=== PATIENT | male | born 1940 | race Caucasian/White ===

== ENCOUNTER 2018-05-19 17:23 | Emergency (ER) | payer MEDICARE, MEDICAID ==
[~2018-05-19] VITALS: Ht 175.3 cm; Wt 89.1 kg
[~2018-05-19 17:23] MED LIST: ASPI-611 PO; COL100C PO; COR3.125T PO; CYCL-394 PO; FERR325T28 PO; INSU100V36 SQ; LANTUS SQ; METF850T2 PO; MSC15T PO; NORCO10T PO; PANT40TA39 PO; PRAV10TA38 PO
[2018-05-19 17:24] VITALS: BP 142/69
== END 2018-05-19 18:10 | disposition home or self-care (01) ==
LOC: ER 17:24
DX: R05 Cough (principal); R11.2 Nausea with vomiting, unspecified; I10 Essential (primary) hypertension; I25.10 Atherosclerotic heart disease of native coronary artery without angina pectoris; E78.00 Pure hypercholesterolemia, unspecified; I25.2 Old myocardial infarction; K21.9 Gastro-esophageal reflux disease without esophagitis; E11.9 Type 2 diabetes mellitus without complications; Z95.1 Presence of aortocoronary bypass graft; Z79.82 Long term (current) use of aspirin; Z79.4 Long term (current) use of insulin; Z79.84 Long term (current) use of oral hypoglycemic drugs; Z79.899 Other long term (current) drug therapy
CPT/HCPCS: 99281

== ENCOUNTER 2018-07-26 14:13 | Emergency (ER) | payer MEDICARE, OTHER ==
[~2018-07-26] VITALS: Ht 177.8 cm; Wt 86.4 kg
[2018-07-26] MEDS ORDERED: dexamethasone sod phosphate 10mg/ml inj IV STA (14:20)
[2018-07-26] MEDS ORDERED: normal saline 1000ML IV soln IVB ONE ×3 (14:20→16:25)
[2018-07-26] MEDS ORDERED: dextrose 50%-water 50ml dispensing syringe IV ONE (14:40)
[2018-07-26 15:23] LABS: BASOPHILS % (AUTO) 0 % (0-1); EOSINOPHILS # (AUTO) 0.2 X10'3 (0-0.9); EOSINOPHILS % (AUTO) 1.7 % (0-6); HEMATOCRIT 38.5 % (42.0-52.0); HEMOGLOBIN 12.7 g/dl (14.0-17.9); LYMPHOCYTES # (AUTO) 1.8 X10'3 (1.1-4.8); LYMPHOCYTES % (AUTO) 13.5 % (21-51); MEAN CORPUSCULAR HEMOGLOBIN 30.4 PG (27.0-31.0); MEAN CORPUSCULAR VOLUME 92.1 FL (78-98); MEAN PLATELET VOLUME 10.8 FL (7.4-10.4); MONOCYTES # (AUTO) 1.1 X10'3 (0-0.9); MONOCYTES % (AUTO) 7.9 % (2-12); NEUTROPHILS # (AUTO) 10.3 X10'3 (1.8-7.7); NEUTROPHILS % (AUTO) 76.9 % (42-75); PLATELET COUNT 266 X10'3 (140-440); RED BLOOD COUNT 4.19 X10'6 (4.70-6.10); WHITE BLOOD COUNT 13.4 X10'3 (4.5-11.0)
[2018-07-26 15:40] LABS: ALANINE AMINOTRANSFERASE 23 U/L (12-78); ALBUMIN/GLOBULIN RATIO 1.1 (1.1-1.5); ALKALINE PHOSPHATASE 112 IU/L (46-116); ANION GAP 9 (8-16); ASPARTATE AMINO TRANSFERASE 25 U/L (10-37); BILIRUBIN,TOTAL 0.4 MG/DL (0.1-1.0); BLOOD UREA NITROGEN 32 MG/DL (7-18); BUN/CREATININE RATIO 24.8 (5.4-32.0); CALCIUM 9.8 MG/DL (8.5-10.1); CHLORIDE 102 MMOL/L (99-107); CREATININE 1.29 MG/DL (0.60-1.10); GLUCOSE 54 MG/DL (70-104); POTASSIUM 3.9 MMOL/L (3.5-5.1); SODIUM 136 MMOL/L (135-145); TOTAL CARBON DIOXIDE 25.2 MMOL/L (24-32); TOTAL PROTEIN 7.8 G/DL (6.4-8.2); eGFR 54 ML/MIN
[2018-07-26 16:05] LABS: TOTAL CELLS COUNTED 100
[2018-07-26 16:06] LABS: PLATELET ESTIMATE NORMAL
[2018-07-26 16:07] LABS: GIANT PLATELET FEW; LARGE PLATELETS MODERATE; TOXIC GRANULATION 2+
[2018-07-26 16:20] VITALS: BP 153/62
[2018-07-26 17:17] LABS: CLARITY,URINE SLIGHTLY CLOUDY (Clear); COLOR,URINE YELLOW (Yellow); GLUCOSE, URINE 500 mg/dl (Neg); KETONES,URINE NEGATIVE (Neg); LEUKOCYTE ESTERASE ,URINE NEGATIVE (Neg); NITRITES, URINE NEGATIVE (Neg); OCCULT BLOOD,URINE NEGATIVE (Neg); PH,URINE 5.5 (4.8-8.0); PROTEIN,URINE 100 mg/dl (Neg); UROBILINOGEN,URINE 0.2 E.U/dL (0.2-1.0)
[2018-07-26 17:18] LABS: UA COLLECTION TYPE STRAIGHT CATH
[2018-07-26 17:24] LABS: BACTERIA,URINE NONE SEEN /HPF (Neg); MUCUS STRANDS FEW /LPF (Neg); RBC,URINE 0-2 /HPF (0-2); SQUAMOUS EPITHELIAL CELL,UR FEW /LPF (FEW); TRANSITIONAL EPI CELLS,URINE FEW /HPF; WBC,URINE 0-4 /HPF (0-4)
[2018-07-26 17:25] LABS: AMORPHOUS URATES 2+; HYALINE CASTS 0-3 /LPF (NEGATIVE)
[2018-07-26] MEDS ORDERED: CefTRIAXone 2gm/D5W 50ml 50 ML IV ONE (17:25)
[2018-07-26] MEDS ORDERED: LEVO500T89 PO (18:51)
== END 2018-07-26 19:11 | disposition home or self-care (01) ==
LOC: ER 14:14
DX: E11.649 Type 2 diabetes mellitus with hypoglycemia without coma (principal); I25.10 Atherosclerotic heart disease of native coronary artery without angina pectoris; E78.00 Pure hypercholesterolemia, unspecified; I10 Essential (primary) hypertension; I25.2 Old myocardial infarction; K21.9 Gastro-esophageal reflux disease without esophagitis; Z95.1 Presence of aortocoronary bypass graft; Z79.82 Long term (current) use of aspirin; Z79.4 Long term (current) use of insulin; Z79.899 Other long term (current) drug therapy
CPT/HCPCS: 36415; 71045; 80053; 81001; 82948; 84145; 85025; 93005; 96361; 96365; 96375; 99285; A4353; J0696; J1100; J7030

== ENCOUNTER 2018-08-02 10:21 | Emergency (ER) | payer MEDICARE, OTHER ==
[~2018-08-02] VITALS: Ht 175.3 cm; Wt 85.5 kg
[~2018-08-02 10:21] MED LIST changes: +LEVO500T89 PO
[2018-08-02 10:58] LABS: BASOPHILS % (AUTO) 0 % (0-1); EOSINOPHILS # (AUTO) 0.1 X10'3 (0-0.9); EOSINOPHILS % (AUTO) 0.6 % (0-6); HEMATOCRIT 39.3 % (42.0-52.0); HEMOGLOBIN 13.2 g/dl (14.0-17.9); LYMPHOCYTES # (AUTO) 0.7 X10'3 (1.1-4.8); LYMPHOCYTES % (AUTO) 4.3 % (21-51); MEAN CORPUSCULAR HEMOGLOBIN 30.4 PG (27.0-31.0); MEAN CORPUSCULAR HGB CONC 33.5 % (33.0-36.5); MEAN CORPUSCULAR VOLUME 90.8 FL (78-98); MEAN PLATELET VOLUME 11.4 FL (7.4-10.4); MONOCYTES # (AUTO) 1.2 X10'3 (0-0.9); MONOCYTES % (AUTO) 7.5 % (2-12); NEUTROPHILS # (AUTO) 14.5 X10'3 (1.8-7.7); NEUTROPHILS % (AUTO) 87.6 % (42-75); PLATELET COUNT 243 X10'3 (140-440); RED BLOOD COUNT 4.33 X10'6 (4.70-6.10); WHITE BLOOD COUNT 16.6 X10'3 (4.5-11.0)
[2018-08-02 11:11] LABS: ALANINE AMINOTRANSFERASE 19 U/L (12-78); ALBUMIN 3.1 G/DL (3.4-5.0); ALBUMIN/GLOBULIN RATIO 0.7 (1.1-1.5); ALKALINE PHOSPHATASE 113 IU/L (46-116); ANION GAP 11 (8-16); ASPARTATE AMINO TRANSFERASE 18 U/L (10-37); BILIRUBIN,TOTAL 0.5 MG/DL (0.1-1.0); BLOOD UREA NITROGEN 24 MG/DL (7-18); BUN/CREATININE RATIO 16.8 (5.4-32.0); CALCIUM 9.7 MG/DL (8.5-10.1); CHLORIDE 97 MMOL/L (99-107); CREATININE 1.43 MG/DL (0.60-1.10); GLUCOSE 208 MG/DL (70-104); POTASSIUM 4.8 MMOL/L (3.5-5.1); SODIUM 133 MMOL/L (135-145); TOTAL PROTEIN 7.8 G/DL (6.4-8.2); eGFR 48 ML/MIN
[2018-08-02 11:17] LABS: LARGE PLATELETS FEW; PLATELET ESTIMATE NORMAL
[2018-08-02] MEDS ORDERED: benzonatate 100mg capsule PO ONE (11:20)
[2018-08-02] MEDS ORDERED: BENZ-16 PO (11:47)
[2018-08-02 11:50] LABS: CLARITY,URINE Clear (Clear); COLOR,URINE Yellow (Yellow); GLUCOSE, URINE 500 mg/dl (Neg); KETONES,URINE 15 mg/dl (Neg); LEUKOCYTE ESTERASE ,URINE Negative (Neg); NITRITES, URINE Negative (Neg); OCCULT BLOOD,URINE Negative (Neg); PROTEIN,URINE 300 mg/dl (Neg); UROBILINOGEN,URINE 0.2 E.U/dL (0.2-1.0)
[2018-08-02 11:52] LABS: UA COLLECTION TYPE CLN CATCH MIDSTREAM
[2018-08-02 11:59] LABS: BACTERIA,URINE NONE SEEN /HPF (Neg); RBC,URINE NONE SEEN /HPF (0-2); SQUAMOUS EPITHELIAL CELL,UR FEW /LPF (FEW); WBC,URINE NONE SEEN /HPF (0-4)
[2018-08-02 12:01] VITALS: BP 129/71
== END 2018-08-02 12:05 | disposition home or self-care (01) ==
LOC: ER 10:22
DX: J40 Bronchitis, not specified as acute or chronic (principal); I25.10 Atherosclerotic heart disease of native coronary artery without angina pectoris; E78.00 Pure hypercholesterolemia, unspecified; I10 Essential (primary) hypertension; I25.2 Old myocardial infarction; K21.9 Gastro-esophageal reflux disease without esophagitis; E11.9 Type 2 diabetes mellitus without complications; Z95.1 Presence of aortocoronary bypass graft; Z79.82 Long term (current) use of aspirin
CPT/HCPCS: 36415; 71046; 80053; 81001; 83605; 84484; 85025; 87040; 93005; 99285

== ENCOUNTER 2018-08-12 10:29 | Emergency (ER) | payer MEDICARE, MEDICAID ==
[~2018-08-12] VITALS: Ht 172.7 cm; Wt 82.2 kg
[~2018-08-12 10:29] MED LIST changes: +BENZ-16 PO; +METF-951 PO; -METF850T2 PO
[2018-08-12 11:43] LABS: ALANINE AMINOTRANSFERASE 25 U/L (12-78); ALBUMIN 3.7 G/DL (3.4-5.0); ALBUMIN/GLOBULIN RATIO 0.8 (1.1-1.5); ALKALINE PHOSPHATASE 110 IU/L (46-116); ANION GAP 12 (8-16); ASPARTATE AMINO TRANSFERASE 18 U/L (10-37); BILIRUBIN,TOTAL 0.5 MG/DL (0.1-1.0); BLOOD UREA NITROGEN 21 MG/DL (7-18); BUN/CREATININE RATIO 14.7 (5.4-32.0); CALCIUM 10.4 MG/DL (8.5-10.1); CHLORIDE 97 MMOL/L (99-107); CREATININE 1.43 MG/DL (0.60-1.10); GLUCOSE 200 MG/DL (70-104); POTASSIUM 5.1 MMOL/L (3.5-5.1); SODIUM 135 MMOL/L (135-145); TOTAL CARBON DIOXIDE 26.5 MMOL/L (24-32); TOTAL PROTEIN 8.1 G/DL (6.4-8.2); eGFR 48 ML/MIN
[2018-08-12 12:05] LABS: BASOPHILS % (AUTO) 0.4 % (0-1); EOSINOPHILS # (AUTO) 0.1 X10'3 (0-0.9); EOSINOPHILS % (AUTO) 1.1 % (0-6); HEMATOCRIT 35.9 % (42.0-52.0); LYMPHOCYTES # (AUTO) 1.2 X10'3 (1.1-4.8); LYMPHOCYTES % (AUTO) 15.5 % (21-51); MEAN CORPUSCULAR HEMOGLOBIN 30.4 PG (27.0-31.0); MEAN CORPUSCULAR HGB CONC 33.4 % (33.0-36.5); MEAN CORPUSCULAR VOLUME 91.1 FL (78-98); MEAN PLATELET VOLUME 10.8 FL (7.4-10.4); MONOCYTES # (AUTO) 0.6 X10'3 (0-0.9); MONOCYTES % (AUTO) 8.2 % (2-12); NEUTROPHILS # (AUTO) 5.6 X10'3 (1.8-7.7); NEUTROPHILS % (AUTO) 74.8 % (42-75); PLATELET COUNT 263 X10'3 (140-440); RED BLOOD COUNT 3.94 X10'6 (4.70-6.10); RED CELL DISTRIBUTION WIDTH 13.8 % (11.5-14.5); WHITE BLOOD COUNT 7.5 X10'3 (4.5-11.0)
[2018-08-12 12:08] LABS: GIANT PLATELET FEW; LARGE PLATELETS FEW; PLATELET ESTIMATE NORMAL
[2018-08-12] MEDS ORDERED: normal saline 1000ML IV soln IV ONE (12:20)
[2018-08-12 12:26] VITALS: BP 135/67
[2018-08-12] MEDS ORDERED: BENZ-16 PO (13:49)
== END 2018-08-12 14:10 | disposition home or self-care (01) ==
LOC: ER 10:30
DX: R05 Cough (principal); I25.10 Atherosclerotic heart disease of native coronary artery without angina pectoris; E78.00 Pure hypercholesterolemia, unspecified; I10 Essential (primary) hypertension; I25.2 Old myocardial infarction; K21.9 Gastro-esophageal reflux disease without esophagitis; E11.9 Type 2 diabetes mellitus without complications; Z95.1 Presence of aortocoronary bypass graft; Z79.82 Long term (current) use of aspirin; Z79.899 Other long term (current) drug therapy; Z79.4 Long term (current) use of insulin
CPT/HCPCS: 36415; 71046; 80053; 83605; 84145; 85025; 87040; 99285; J7030

== ENCOUNTER 2019-04-29 10:35 | Emergency (ER) | payer MEDICARE, MEDICAID ==
[~2019-04-29] VITALS: Ht 172.7 cm; Wt 80.0 kg
[~2019-04-29 10:35] MED LIST changes: -BENZ-16 PO; -LEVO500T89 PO
[2019-04-29 10:58] VITALS: BP 154/72
[2019-04-29] MEDS ORDERED: PRED20TA PO (12:24)
[2019-04-29] MEDS ORDERED: BENZ-16 PO (12:24)
== END 2019-04-29 12:42 | disposition home or self-care (01) ==
LOC: ER 10:36
DX: R05 Cough (principal); I25.10 Atherosclerotic heart disease of native coronary artery without angina pectoris; E78.00 Pure hypercholesterolemia, unspecified; I10 Essential (primary) hypertension; I25.2 Old myocardial infarction; K21.9 Gastro-esophageal reflux disease without esophagitis; E11.9 Type 2 diabetes mellitus without complications; Z95.1 Presence of aortocoronary bypass graft; Z79.82 Long term (current) use of aspirin; Z79.4 Long term (current) use of insulin; Z79.84 Long term (current) use of oral hypoglycemic drugs; Z79.899 Other long term (current) drug therapy
CPT/HCPCS: 71045; 99283

== ENCOUNTER 2020-02-08 08:31 | Inpatient (IN) | payer BC, MEDICAID ==
[~2020-02-08] VITALS: Ht 172.7 cm; Wt 72.0 kg
[~2020-02-08 08:31] MED LIST changes: +ALBU18HF2 PO; +AMLO5TAB16 PO; +APIX5TAB3 PO; +CARV6.253 CORPAK; -COL100C PO; -COR3.125T PO; -CYCL-394 PO; +DONE10TA44 PO; +FENO48TA9 PO; +FERR324T2 PO; -FERR325T28 PO; +FLO0.4C PO; +FURO-150 PO; +HYDR-3972 PO; +INSU100I8 SQ; -INSU100V36 SQ; +LACT1CAP26 CORPAK; -LANTUS SQ; +LEVO250T58 PO; -METF-951 PO; -MSC15T PO; -NORCO10T PO; -PANT40TA39 PO; +PANT40TA4 PO; +POLY17PO10 PO
[2020-02-08] MEDS ORDERED: acetaminophen 325mg tablet PO STA (09:43)
[2020-02-08] MEDS ORDERED: CefTRIAXone 2gm/D5W 50ml 50 ML IV ONE (09:45)
[2020-02-08] MEDS ORDERED: normal saline 1000ML IV soln IVB ONE (09:45)
[2020-02-08 09:57] LABS: BASOPHILS % (AUTO) 0.2 % (0-1); EOSINOPHILS % (AUTO) 0 % (0-6); HEMOGLOBIN 11.1 g/dl (14.0-17.9); LYMPHOCYTES # (AUTO) 0.4 X10'3 (1.1-4.8); LYMPHOCYTES % (AUTO) 3.7 % (21-51); MEAN CORPUSCULAR HEMOGLOBIN 27.9 PG (27.0-31.0); MEAN CORPUSCULAR HGB CONC 32.7 g/dL (33.0-36.5); MEAN CORPUSCULAR VOLUME 85.3 FL (78-98); MEAN PLATELET VOLUME 10.5 FL (7.4-10.4); MONOCYTES # (AUTO) 0.4 X10'3 (0-0.9); MONOCYTES % (AUTO) 3.8 % (2-12); NEUTROPHILS # (AUTO) 10.2 X10'3 (1.8-7.7); NEUTROPHILS % (AUTO) 92.3 % (42-75); PLATELET COUNT 302 X10'3 (140-440); RED BLOOD COUNT 3.98 X10'6 (4.70-6.10); RED CELL DISTRIBUTION WIDTH 16.1 % (11.5-14.5); WHITE BLOOD COUNT 11.1 X10'3 (4.5-11.0)
[2020-02-08 10:03] LABS: PARTIAL THROMBOPLASTIN TIME 35 SECONDS (22-32)
[2020-02-08 10:10] LABS: ALANINE AMINOTRANSFERASE 15 U/L (12-78); ALBUMIN 3.9 G/DL (3.4-5.0); ALBUMIN/GLOBULIN RATIO 0.9 (1.1-1.5); ALKALINE PHOSPHATASE 74 IU/L (46-116); ANION GAP 14 (8-16); ASPARTATE AMINO TRANSFERASE 25 U/L (10-37); BILIRUBIN,TOTAL 0.4 MG/DL (0.1-1.0); BLOOD UREA NITROGEN 55 MG/DL (7-18); BUN/CREATININE RATIO 16.4 (5.4-32.0); CALCIUM 10.3 MG/DL (8.5-10.1); CHLORIDE 101 MMOL/L (99-107); CREATININE 3.36 MG/DL (0.60-1.10); GLUCOSE 159 MG/DL (70-104); MAGNESIUM 1.8 MG/DL (1.5-2.4); POTASSIUM 4.9 MMOL/L (3.5-5.1); SODIUM 136 MMOL/L (135-145); TOTAL PROTEIN 8.3 G/DL (6.4-8.2); eGFR 18 ML/MIN
[2020-02-08] MEDS ORDERED: cefepime 2g/NS 100ml ADVANTAGE 100 ML IV ONE (11:45)
[2020-02-08] MEDS ORDERED: azithromycin/NS 500mg/250ml 250 ML IV ONE (11:45)
[2020-02-08] MEDS ORDERED: dextrose 50%-water 50ml dispensing syringe IV PRN ×2 (12:40)
[2020-02-08] MEDS ORDERED: dextrose ORAL solution 15 GM/59 ML bottle PO PRN ×2 (12:40)
[2020-02-08] MEDS ORDERED: ondansetron/PF 4mg/2ml inj IV PRN (12:40)
[2020-02-08] MEDS ORDERED: MESSAGE TO PHARMACY PO ONE (12:40)
[2020-02-08] MEDS ORDERED: magnesium 2GM in 50ml NS 50 ML IV PRN (12:40)
[2020-02-08] MEDS ORDERED: acetaminophen 325mg tablet PO PRN (12:40)
[2020-02-08] MEDS ORDERED: mag hydrox/Alum hydrox/simeth 30ml oral suspension PO PRN (12:40)
[2020-02-08] MEDS ORDERED: ipratropium/albuterol 3ml nebule NEB PRN (12:40)
[2020-02-08] MEDS ORDERED: magnesium 4gm in 100ml NS 100 ML IV PRN (12:40)
[2020-02-08] MEDS ORDERED: glucagon, human recombinant 1mg kit SUBCUT PRN (12:40)
[2020-02-08] MEDS ORDERED: potassium CL 10mEq/100ml bag 100 ML IV PRN ×2 (12:40)
[2020-02-08] MEDS ORDERED: docusate sod 100mg capsule PO PRN (12:40)
[2020-02-08] MEDS ORDERED: potassium Cl 20 mEq SR tablet PO PRN ×2 (12:40)
[2020-02-08] MEDS ORDERED: DOCU100T PO (13:05)
[2020-02-08] MEDS ORDERED: CARV3.1289 PO (13:05)
[2020-02-08] MEDS ORDERED: INSU100V12 SQ (13:05)
[2020-02-08] MEDS ORDERED: FURO-150 PO (13:05)
[2020-02-08] MEDS ORDERED: INSU100C4 SQ (13:05)
[2020-02-08] MEDS ORDERED: FERR-39 PO (13:05)
[2020-02-08] MEDS ORDERED: LOSA50TA64 PO (13:05)
[2020-02-08] MEDS ORDERED: FLUT16SP18 BOTHNARES (13:05)
[2020-02-08 13:10] LABS: HEMOGLOBIN A1C 8.1 % (4.5-6.2)
--- NOTE | 2020-02-08 14:08 | NUR ---
Received report from JAKE Dominguez. Awaiting patient arrival to [facility].
[2020-02-08 14:54] VITALS: BP 112/45
--- NOTE | 2020-02-08 14:54 | NUR ---
Patient arrived to room 3017B via gurney and was able to move himself from the gurney to the bed. Patient vital signs are pain 4/10 from his tooth, 96% on room air, HR 63, RR 16, BP 122/64. Bed locked and lowered, nonskid socks on, call light in reach, and in no acute distress.
[2020-02-08 15:00] VITALS: BP 102/64
--- NOTE | 2020-02-08 17:15 | NUR ---
DM Consult: A1C 8.1. Pt seen by ARTHUR for written/verbal DM ed w/ RD contact information provided. Pt declined verbal DM ed at this time; written ed w/ RD contact information left at bedside. Pt requests no pork w/ meals; dietary notified. Addendum: 02/08/20 at [address] Amended: Links added.
[2020-02-08 18:00] VITALS: BP 120/44
--- NOTE | 2020-02-08 18:33 | NUR ---
Problems reprioritized. Patient report given, questions answered & plan of care reviewed with JAKE Donnelly. Patient stable at transfer of care.
[2020-02-08] MEDS: K and/or MAG REPLACEMENT MC SCH (19:22)
[2020-02-08] MEDS: insulin Lispro (HumaLOG) vial - multi-dose SQ SCH ×2 (19:41→22:03)
--- NOTE | 2020-02-08 20:23 | NUR ---
Sputum collected and sent to lab.
[2020-02-08] MEDS: carVEDilol 3.125mg tablet PO SCH (21:47)
[2020-02-08] MEDS: ferrous sulfate 325mg tablet PO SCH (21:48)
[2020-02-08] MEDS: apixaban 5mg tablet PO SCH (21:48)
[2020-02-08] MEDS: donepezil 5mg tablet PO SCH (21:48)
[2020-02-08] MEDS: lactobacillus rhamnosus 10,000 MMU CELLS/CAPSULE PO SCH (21:48)
[2020-02-08] MEDS: metroNIDAZOLE-Flagyl 500mg/NS 100 ML IV SCH (21:49)
[2020-02-08] MEDS: losartan 50mg tablet PO SCH (21:49)
[2020-02-08] MEDS: insulin glargine (Lantus) pen - multi-dose SQ SCH (21:59)
[2020-02-08 22:00] VITALS: BP 107/37
[2020-02-09 01:53] VITALS: BP 115/45
--- NOTE | 2020-02-09 02:00 | NUR ---
Dr. Pathak notified of patient's tooth pain. Patient takes [place] at home. MD continue [place] PRN Q6hr for tooth ache. Will continue with care.
[2020-02-09] MEDS: HYDROcodone/acetaminophen 10/325mg tab PO PRN ×2 (02:11→09:04)
[2020-02-09 06:24] LABS: BASOPHILS % (AUTO) 0.3 % (0-1); EOSINOPHILS # (AUTO) 0.1 X10'3 (0-0.9); HEMATOCRIT 22.7 % (42.0-52.0); HEMOGLOBIN 7.8 g/dl (14.0-17.9); LYMPHOCYTES # (AUTO) 1.4 X10'3 (1.1-4.8); LYMPHOCYTES % (AUTO) 13.8 % (21-51); MEAN CORPUSCULAR HEMOGLOBIN 29.1 PG (27.0-31.0); MEAN CORPUSCULAR HGB CONC 34.3 g/dL (33.0-36.5); MEAN CORPUSCULAR VOLUME 84.8 FL (78-98); MEAN PLATELET VOLUME 10.5 FL (7.4-10.4); MONOCYTES # (AUTO) 1.1 X10'3 (0-0.9); MONOCYTES % (AUTO) 10.3 % (2-12); NEUTROPHILS # (AUTO) 7.6 X10'3 (1.8-7.7); NEUTROPHILS % (AUTO) 74.6 % (42-75); PLATELET COUNT 181 X10'3 (140-440); RED BLOOD COUNT 2.68 X10'6 (4.70-6.10); RED CELL DISTRIBUTION WIDTH 16.1 % (11.5-14.5); WHITE BLOOD COUNT 10.2 X10'3 (4.5-11.0)
[2020-02-09 06:48] LABS: ALANINE AMINOTRANSFERASE 12 U/L (12-78); ALBUMIN 2.9 G/DL (3.4-5.0); ALBUMIN/GLOBULIN RATIO 0.8 (1.1-1.5); ALKALINE PHOSPHATASE 56 IU/L (46-116); ANION GAP 8 (8-16); ASPARTATE AMINO TRANSFERASE 16 U/L (10-37); BILIRUBIN,TOTAL 0.3 MG/DL (0.1-1.0); BLOOD UREA NITROGEN 53 MG/DL (7-18); BUN/CREATININE RATIO 16.6 (5.4-32.0); CALCIUM 8.7 MG/DL (8.5-10.1); CHLORIDE 98 MMOL/L (99-107); GLUCOSE 93 MG/DL (70-104); MAGNESIUM 1.6 MG/DL (1.5-2.4); POTASSIUM 4.2 MMOL/L (3.5-5.1); SODIUM 131 MMOL/L (135-145); TOTAL CARBON DIOXIDE 24.6 MMOL/L (24-32); TOTAL PROTEIN 6.4 G/DL (6.4-8.2); eGFR 19 ML/MIN
[2020-02-09 07:06] VITALS: BP 116/50
[2020-02-09] MEDS ORDERED: CefTRIAXone/D5W-Rocephin 1gm 50 ML IV SCH (08:00)
[2020-02-09] MEDS: tamsulosin 0.4mg capsule PO SCH (08:00)
[2020-02-09] MEDS: K and/or MAG REPLACEMENT MC SCH ×2 (08:00→20:00)
[2020-02-09] MEDS ORDERED: pravastatin 10mg tablet PO SCH (08:00)
[2020-02-09 08:10] LABS: PLATELET ESTIMATE NORMAL; TOTAL CELLS COUNTED 100; TOXIC GRANULATION 2+
[2020-02-09 08:11] LABS: ANISOCYTOSIS 1+; LARGE PLATELETS FEW; TOXIC VACUOLATION FEW
[2020-02-09] MEDS: apixaban 5mg tablet PO SCH ×2 (08:55→20:35)
[2020-02-09] MEDS: fenofibrate 48mg tablet PO SCH (08:55)
[2020-02-09] MEDS: ferrous sulfate 325mg tablet PO SCH ×2 (08:55→20:35)
[2020-02-09] MEDS: aspirin 81mg tablet.DR PO SCH (08:55)
[2020-02-09] MEDS: azithromycin 250mg tablet PO SCH (08:55)
[2020-02-09] MEDS: lactobacillus rhamnosus 10,000 MMU CELLS/CAPSULE PO SCH ×2 (08:56→20:35)
[2020-02-09] MEDS: pantoprazole 40mg Tablet.DR PO SCH (08:56)
[2020-02-09] MEDS: carVEDilol 3.125mg tablet PO SCH ×2 (09:00→20:35)
[2020-02-09] MEDS: amLODIPine 5mg tablet PO SCH (09:00)
[2020-02-09] MEDS: furosemide 20MG tablet PO SCH (09:00)
[2020-02-09] MEDS: losartan 50mg tablet PO SCH ×2 (09:00→20:35)
[2020-02-09] MEDS: metroNIDAZOLE-Flagyl 500mg/NS 100 ML IV SCH ×2 (09:09→20:36)
[2020-02-09] MEDS: cefepime 1GM in D5W 50mL 50 ML IV SCH (09:09)
[2020-02-09] MEDS: fluticasone nasal spray 16GM bottle NS SCH (09:17)
[2020-02-09 11:00] VITALS: BP 118/46
[2020-02-09] MEDS: atorvastatin 10mg tablet PO SCH (11:41)
--- NOTE | 2020-02-09 12:55 | NUR ---
report to Delaney JOSEPH
[2020-02-09 15:37] LABS: HEMATOCRIT 25.1 % (42.0-52.0); HEMOGLOBIN 8.6 g/dl (14.0-17.9); MEAN CORPUSCULAR HEMOGLOBIN 29.3 PG (27.0-31.0); MEAN CORPUSCULAR HGB CONC 34.3 g/dL (33.0-36.5); MEAN CORPUSCULAR VOLUME 85.5 FL (78-98); MEAN PLATELET VOLUME 10.3 FL (7.4-10.4); PLATELET COUNT 196 X10'3 (140-440); RED BLOOD COUNT 2.94 X10'6 (4.70-6.10); RED CELL DISTRIBUTION WIDTH 16.4 % (11.5-14.5); WHITE BLOOD COUNT 9.6 X10'3 (4.5-11.0)
[2020-02-09 17:12] VITALS: BP 116/45
[2020-02-09] MEDS: insulin Lispro (HumaLOG) vial - multi-dose SQ SCH (17:18)
[2020-02-09 19:00] VITALS: BP 115/47
[2020-02-09] MEDS: donepezil 5mg tablet PO SCH (20:35)
[2020-02-09] MEDS: insulin glargine (Lantus) pen - multi-dose SQ SCH (20:48)
[2020-02-09 23:00] VITALS: BP 124/51
[2020-02-10 02:00] VITALS: BP 123/51
--- NOTE | 2020-02-10 06:03 | NUR ---
Problems reprioritized. Patient report given, questions answered & plan of care reviewed with Delaney JOSEPH.
--- NOTE | 2020-02-10 06:31 | NUR ---
Patient in room PCU 3017. I have received report from Yadi JOSEPH and had the opportunity to ask questions and assume patient care.
[2020-02-10 06:50] LABS: BASOPHILS % (AUTO) 0.6 % (0-1); EOSINOPHILS # (AUTO) 0.2 X10'3 (0-0.9); EOSINOPHILS % (AUTO) 3.5 % (0-6); HEMATOCRIT 26.3 % (42.0-52.0); HEMOGLOBIN 8.8 g/dl (14.0-17.9); LYMPHOCYTES # (AUTO) 1.3 X10'3 (1.1-4.8); LYMPHOCYTES % (AUTO) 19.9 % (21-51); MEAN CORPUSCULAR HEMOGLOBIN 28.2 PG (27.0-31.0); MEAN CORPUSCULAR HGB CONC 33.4 g/dL (33.0-36.5); MEAN CORPUSCULAR VOLUME 84.6 FL (78-98); MEAN PLATELET VOLUME 10.7 FL (7.4-10.4); MONOCYTES # (AUTO) 0.8 X10'3 (0-0.9); PLATELET COUNT 189 X10'3 (140-440); RED BLOOD COUNT 3.11 X10'6 (4.70-6.10); RED CELL DISTRIBUTION WIDTH 16.1 % (11.5-14.5); WHITE BLOOD COUNT 6.3 X10'3 (4.5-11.0)
[2020-02-10 07:02] VITALS: BP 135/54
[2020-02-10 07:04] LABS: ALANINE AMINOTRANSFERASE 9 U/L (12-78); ALBUMIN 3.2 G/DL (3.4-5.0); ALBUMIN/GLOBULIN RATIO 0.8 (1.1-1.5); ALKALINE PHOSPHATASE 66 IU/L (46-116); ANION GAP 11 (8-16); ASPARTATE AMINO TRANSFERASE 18 U/L (10-37); BILIRUBIN,TOTAL 0.3 MG/DL (0.1-1.0); BLOOD UREA NITROGEN 50 MG/DL (7-18); BUN/CREATININE RATIO 16.7 (5.4-32.0); CALCIUM 9.7 MG/DL (8.5-10.1); CHLORIDE 99 MMOL/L (99-107); CREATININE 2.99 MG/DL (0.60-1.10); GLUCOSE 144 MG/DL (70-104); MAGNESIUM 1.9 MG/DL (1.5-2.4); POTASSIUM 4.3 MMOL/L (3.5-5.1); SODIUM 131 MMOL/L (135-145); TOTAL CARBON DIOXIDE 21.5 MMOL/L (24-32); TOTAL PROTEIN 7.3 G/DL (6.4-8.2); eGFR 20 ML/MIN
[2020-02-10] MEDS: K and/or MAG REPLACEMENT MC SCH ×2 (08:00→20:00)
[2020-02-10] MEDS: fluticasone nasal spray 16GM bottle NS SCH (08:00)
[2020-02-10] MEDS: carVEDilol 3.125mg tablet PO SCH ×2 (08:00→21:24)
[2020-02-10] MEDS: HYDROcodone/acetaminophen 10/325mg tab PO PRN (08:53)
[2020-02-10] MEDS: losartan 50mg tablet PO SCH ×2 (08:54→21:25)
[2020-02-10] MEDS: lactobacillus rhamnosus 10,000 MMU CELLS/CAPSULE PO SCH ×2 (08:54→21:24)
[2020-02-10] MEDS: pantoprazole 40mg Tablet.DR PO SCH (08:54)
[2020-02-10] MEDS: tamsulosin 0.4mg capsule PO SCH (08:54)
[2020-02-10] MEDS: azithromycin 250mg tablet PO SCH (08:55)
[2020-02-10] MEDS: furosemide 20MG tablet PO SCH (08:55)
[2020-02-10] MEDS: ferrous sulfate 325mg tablet PO SCH ×2 (08:55→21:25)
[2020-02-10] MEDS: apixaban 5mg tablet PO SCH ×2 (08:55→21:25)
[2020-02-10] MEDS: fenofibrate 48mg tablet PO SCH (08:55)
[2020-02-10] MEDS: atorvastatin 10mg tablet PO SCH (08:55)
[2020-02-10] MEDS: amLODIPine 5mg tablet PO SCH (08:55)
[2020-02-10] MEDS: aspirin 81mg tablet.DR PO SCH (08:55)
[2020-02-10] MEDS: cefepime 1GM in D5W 50mL 50 ML IV SCH (08:58)
[2020-02-10] MEDS: insulin Lispro (HumaLOG) vial - multi-dose SQ SCH ×3 (09:02→18:45)
[2020-02-10] MEDS: metroNIDAZOLE-Flagyl 500mg/NS 100 ML IV SCH ×2 (09:28→21:24)
[2020-02-10 10:00] VITALS: BP 118/48
--- NOTE | 2020-02-10 10:17 | NUR ---
PAGER ID: [phone] MESSAGE: Vince Murillo for patient Randy Trujillo his heart rate is right at 60 so I didn't give his coreg yet, it is 9.75mg. Delaney [phone] (122 character message out of a maximum of 240)
[2020-02-10 10:54] LABS: LARGE PLATELETS FEW; PLATELET ESTIMATE NORMAL
[2020-02-10 15:00] VITALS: BP 117/48
--- NOTE | 2020-02-10 15:26 | NUR ---
Patient in room PCU 3017. I have received report from JAKE Baltazar and had the opportunity to ask questions and assume patient care.
--- NOTE | 2020-02-10 15:27 | NUR ---
Problems reprioritized. Patient report given, questions answered & plan of care reviewed with Barbi RN.
--- NOTE | 2020-02-10 15:30 | NUR ---
I have reviewed and agree with the assessment done by JAKE Baltazar.
--- NOTE | 2020-02-10 18:14 | NUR ---
Problems reprioritized. Patient report given, questions answered & plan of care reviewed with JAKE Grullon.
[2020-02-10 19:00] VITALS: BP 113/39
[2020-02-10] MEDS: donepezil 5mg tablet PO SCH (21:25)
[2020-02-10] MEDS: insulin glargine (Lantus) pen - multi-dose SQ SCH (21:34)
[2020-02-10 23:00] VITALS: BP 146/59
[2020-02-11 03:00] VITALS: BP 145/58
[2020-02-11 06:00] VITALS: BP 116/65
[2020-02-11 06:07] LABS: BASOPHILS % (AUTO) 0.6 % (0-1); EOSINOPHILS # (AUTO) 0.2 X10'3 (0-0.9); EOSINOPHILS % (AUTO) 4.6 % (0-6); HEMATOCRIT 25.8 % (42.0-52.0); HEMOGLOBIN 8.7 g/dl (14.0-17.9); LYMPHOCYTES # (AUTO) 1.2 X10'3 (1.1-4.8); LYMPHOCYTES % (AUTO) 26.6 % (21-51); MEAN CORPUSCULAR HEMOGLOBIN 28.3 PG (27.0-31.0); MEAN CORPUSCULAR HGB CONC 33.6 g/dL (33.0-36.5); MEAN CORPUSCULAR VOLUME 84.2 FL (78-98); MEAN PLATELET VOLUME 10.3 FL (7.4-10.4); MONOCYTES # (AUTO) 0.6 X10'3 (0-0.9); MONOCYTES % (AUTO) 13.9 % (2-12); NEUTROPHILS # (AUTO) 2.5 X10'3 (1.8-7.7); NEUTROPHILS % (AUTO) 54.3 % (42-75); PLATELET COUNT 223 X10'3 (140-440); RED BLOOD COUNT 3.07 X10'6 (4.70-6.10); RED CELL DISTRIBUTION WIDTH 16.2 % (11.5-14.5); WHITE BLOOD COUNT 4.5 X10'3 (4.5-11.0)
--- NOTE | 2020-02-11 06:08 | NUR ---
Problems reprioritized. Patient report given, questions answered & plan of care reviewed with Barbi RN.
[2020-02-11 06:25] LABS: ALANINE AMINOTRANSFERASE 12 U/L (12-78); ALBUMIN 3.1 G/DL (3.4-5.0); ALBUMIN/GLOBULIN RATIO 0.8 (1.1-1.5); ALKALINE PHOSPHATASE 65 IU/L (46-116); ANION GAP 9 (8-16); ASPARTATE AMINO TRANSFERASE 17 U/L (10-37); BILIRUBIN,TOTAL 0.3 MG/DL (0.1-1.0); BLOOD UREA NITROGEN 47 MG/DL (7-18); BUN/CREATININE RATIO 15.8 (5.4-32.0); CALCIUM 9.4 MG/DL (8.5-10.1); CHLORIDE 101 MMOL/L (99-107); CREATININE 2.98 MG/DL (0.60-1.10); GLUCOSE 120 MG/DL (70-104); MAGNESIUM 1.7 MG/DL (1.5-2.4); POTASSIUM 4.4 MMOL/L (3.5-5.1); SODIUM 135 MMOL/L (135-145); TOTAL CARBON DIOXIDE 25.5 MMOL/L (24-32); TOTAL PROTEIN 6.9 G/DL (6.4-8.2); eGFR 21 ML/MIN
--- NOTE | 2020-02-11 06:30 | NUR ---
Patient in room PCU 3017. I have received report from JAKE Grullon and had the opportunity to ask questions and assume patient care.
[2020-02-11] MEDS: furosemide 20MG tablet PO SCH (08:00)
[2020-02-11] MEDS: carVEDilol 3.125mg tablet PO SCH (08:00)
[2020-02-11] MEDS: amLODIPine 5mg tablet PO SCH (08:00)
[2020-02-11] MEDS: fluticasone nasal spray 16GM bottle NS SCH (08:00)
[2020-02-11] MEDS: K and/or MAG REPLACEMENT MC SCH (08:00)
[2020-02-11] MEDS: losartan 50mg tablet PO SCH (08:00)
[2020-02-11] MEDS: metroNIDAZOLE-Flagyl 500mg/NS 100 ML IV SCH (09:10)
[2020-02-11] MEDS: tamsulosin 0.4mg capsule PO SCH (09:11)
[2020-02-11] MEDS: apixaban 5mg tablet PO SCH (09:11)
[2020-02-11] MEDS: aspirin 81mg tablet.DR PO SCH (09:11)
[2020-02-11] MEDS: lactobacillus rhamnosus 10,000 MMU CELLS/CAPSULE PO SCH (09:11)
[2020-02-11] MEDS: atorvastatin 10mg tablet PO SCH (09:12)
[2020-02-11] MEDS: azithromycin 250mg tablet PO SCH (09:12)
[2020-02-11] MEDS: pantoprazole 40mg Tablet.DR PO SCH (09:13)
[2020-02-11] MEDS: ferrous sulfate 325mg tablet PO SCH (09:13)
[2020-02-11] MEDS: fenofibrate 48mg tablet PO SCH (09:13)
[2020-02-11] MEDS: insulin Lispro (HumaLOG) vial - multi-dose SQ SCH (09:18)
[2020-02-11] MEDS: cefepime 1GM in D5W 50mL 50 ML IV SCH (09:21)
[2020-02-11] MEDS: HYDROcodone/acetaminophen 10/325mg tab PO PRN (09:43)
[2020-02-11] MEDS ORDERED: AMOX-419 PO (10:44)
[2020-02-11] MEDS ORDERED: AZI25OT PO (10:44)
[2020-02-11 12:37] LABS: OCCULT BLOOD STOOL NEGATIVE (Neg)
--- NOTE | 2020-02-11 15:22 | NUR ---
pt discharged. IV d/c'd, tele removed, all belongings sent with pt. pt wheeled down by hospital staff. left with family in private vehicle. Rx sent to pt preferred pharmacy.
[2020-02-11] MEDS ORDERED: metroNIDAZOLE 500mg tablet PO SCH (20:00)
== END 2020-02-11 15:17 | disposition home or self-care (01) | DRG 193 ==
LOC: ER 08:31 → ED HOLD 12:40 → PCU 3S 14:54
PROVIDERS: ADMIT Family Medicine; ATTEND Family Medicine
DX: J18.1 Lobar pneumonia, unspecified organism (principal); N17.0 Acute kidney failure with tubular necrosis; N18.4 Chronic kidney disease, stage 4 (severe); I13.0 Hypertensive heart and chronic kidney disease with heart failure and stage 1 through stage 4 chronic kidney disease, or unspecified chronic kidney disease; I44.2 Atrioventricular block, complete; I48.0 Paroxysmal atrial fibrillation; I25.10 Atherosclerotic heart disease of native coronary artery without angina pectoris; E78.5 Hyperlipidemia, unspecified; E11.22 Type 2 diabetes mellitus with diabetic chronic kidney disease; N40.0 Benign prostatic hyperplasia without lower urinary tract symptoms; E78.00 Pure hypercholesterolemia, unspecified; F03.90 Unspecified dementia, unspecified severity, without behavioral disturbance, psychotic disturbance, mood disturbance, and anxiety; D64.9 Anemia, unspecified; E11.649 Type 2 diabetes mellitus with hypoglycemia without coma; K21.9 Gastro-esophageal reflux disease without esophagitis; Z95.0 Presence of cardiac pacemaker; Z95.1 Presence of aortocoronary bypass graft; I25.2 Old myocardial infarction; Z79.01 Long term (current) use of anticoagulants; Z79.4 Long term (current) use of insulin; Z80.1 Family history of malignant neoplasm of trachea, bronchus and lung
CPT/HCPCS: 36415; 71045; 71250; 76937; 80053; 82272; 82948; 83036; 83605; 83735; 83880; 84145; 85025; 85027; 85610; 85730; 87040; 87070; 87081; 92508; 92616; 93005; 94667; 94760; 96361; 96365; 96367; 97116; 97161; 97530; 99285; G0378; J0456; J0692; J0696; J1815; J3490; J7030

== ENCOUNTER 2020-07-18 10:56 | Emergency (ER) | payer BC, MEDICAID ==
[~2020-07-18] VITALS: Ht 170.2 cm; Wt 75.0 kg
[~2020-07-18 10:56] MED LIST changes: +AZI25OT PO; +CARV3.1289 PO; -CARV6.253 CORPAK; +DOCU100T PO; +FERR-39 PO; -FERR324T2 PO; +FLUT16SP18 BOTHNARES; +INSU100C4 SQ; -INSU100I8 SQ; +INSU100V12 SQ; -LACT1CAP26 CORPAK; -LEVO250T58 PO; +LOSA50TA64 PO; -POLY17PO10 PO
[2020-07-18] MEDS ORDERED: normal saline 1000ML IV soln IVB ONE (11:15)
--- NOTE | 2020-07-18 11:41 | NUR ---
Mainor GRIMM at bedside.
[2020-07-18 11:45] LABS: CLARITY,URINE CLEAR (Clear); COLOR,URINE YELLOW (Yellow); GLUCOSE, URINE 250 mg/dl (Neg); KETONES,URINE NEGATIVE (Neg); LEUKOCYTE ESTERASE ,URINE NEGATIVE (Neg); NITRITES, URINE NEGATIVE (Neg); OCCULT BLOOD,URINE SMALL (Neg); PROTEIN,URINE >=300 mg/dl (Neg); UROBILINOGEN,URINE 0.2 E.U/dL (0.2-1.0)
[2020-07-18 11:46] LABS: UA COLLECTION TYPE CLN CATCH MIDSTREAM
[2020-07-18 11:49] LABS: BASOPHILS % (AUTO) 0.5 % (0-1); EOSINOPHILS # (AUTO) 0.2 X10'3 (0-0.9); EOSINOPHILS % (AUTO) 2.8 % (0-6); HEMATOCRIT 28.8 % (42.0-52.0); HEMOGLOBIN 9.5 g/dl (14.0-17.9); LYMPHOCYTES # (AUTO) 1.1 X10'3 (1.1-4.8); LYMPHOCYTES % (AUTO) 16.4 % (21-51); MEAN CORPUSCULAR HEMOGLOBIN 28.6 PG (27.0-31.0); MEAN CORPUSCULAR VOLUME 86.5 FL (78-98); MEAN PLATELET VOLUME 10.8 FL (7.4-10.4); MONOCYTES # (AUTO) 0.8 X10'3 (0-0.9); MONOCYTES % (AUTO) 11.8 % (2-12); NEUTROPHILS # (AUTO) 4.7 X10'3 (1.8-7.7); NEUTROPHILS % (AUTO) 68.5 % (42-75); PLATELET COUNT 219 X10'3 (140-440); RED BLOOD COUNT 3.33 X10'6 (4.70-6.10); RED CELL DISTRIBUTION WIDTH 14.6 % (11.5-14.5); WHITE BLOOD COUNT 6.9 X10'3 (4.5-11.0)
[2020-07-18 11:50] LABS: HYALINE CASTS 0-3 /LPF (NEGATIVE); MUCUS STRANDS FEW /LPF (Neg); SQUAMOUS EPITHELIAL CELL,UR FEW /LPF (FEW)
[2020-07-18 11:51] LABS: BACTERIA,URINE FEW /HPF (Neg); RBC,URINE 0-2 /HPF (0-2); WBC,URINE 0-4 /HPF (0-4)
[2020-07-18 12:04] LABS: ALANINE AMINOTRANSFERASE 19 U/L (12-78); ALBUMIN 3.8 G/DL (3.4-5.0); ALBUMIN/GLOBULIN RATIO 0.9 (1.1-1.5); ALKALINE PHOSPHATASE 97 IU/L (46-116); ANION GAP 11 (8-16); ASPARTATE AMINO TRANSFERASE 25 U/L (10-37); BILIRUBIN,TOTAL 0.4 MG/DL (0.1-1.0); BLOOD UREA NITROGEN 56 MG/DL (7-18); BUN/CREATININE RATIO 15.5 (5.4-32.0); CALCIUM 9.1 MG/DL (8.5-10.1); CHLORIDE 100 MMOL/L (99-107); CREATININE 3.61 MG/DL (0.60-1.10); GLUCOSE 190 MG/DL (70-104); POTASSIUM 5.4 MMOL/L (3.5-5.1); SODIUM 134 MMOL/L (135-145); TOTAL CARBON DIOXIDE 22.7 MMOL/L (24-32); TOTAL PROTEIN 7.9 G/DL (6.4-8.2); eGFR 16 ML/MIN
[2020-07-18 12:55] LABS: TOTAL CELLS COUNTED 100
[2020-07-18 12:56] LABS: PLATELET ESTIMATE NORMAL
[2020-07-18 13:13] VITALS: BP 142/55
== END 2020-07-18 13:18 | disposition home or self-care (01) ==
LOC: ER 10:57
DX: I12.9 Hypertensive chronic kidney disease with stage 1 through stage 4 chronic kidney disease, or unspecified chronic kidney disease (principal); E11.22 Type 2 diabetes mellitus with diabetic chronic kidney disease; N18.9 Chronic kidney disease, unspecified; E87.5 Hyperkalemia; I25.10 Atherosclerotic heart disease of native coronary artery without angina pectoris; E78.00 Pure hypercholesterolemia, unspecified; I25.2 Old myocardial infarction; K21.9 Gastro-esophageal reflux disease without esophagitis; Z95.1 Presence of aortocoronary bypass graft; Z95.0 Presence of cardiac pacemaker; Z79.82 Long term (current) use of aspirin; Z79.899 Other long term (current) drug therapy; Z79.4 Long term (current) use of insulin; Z79.2 Long term (current) use of antibiotics
CPT/HCPCS: 36415; 80053; 81001; 85007; 85025; 93005; 96360; 99284; J7030

== ENCOUNTER 2021-10-30 18:41 | Inpatient (IN) | payer MEDICARE, MEDICAID ==
[~2021-10-30] VITALS: Ht 172.7 cm; Wt 74.1 kg
[~2021-10-30 18:41] MED LIST changes: -DOCU100T PO; +DOCU100T28 PO; +FENO48TA10 PO; -FENO48TA9 PO; +FLUT16SP BOTHNARES; -FLUT16SP18 BOTHNARES; -PANT40TA4 PO; +PANT40TA54 PO
[2021-10-30] MEDS ORDERED: ipratropium/albuterol 3ml nebule NEB ONE (18:50)
[2021-10-30 20:15] LABS: BASOPHILS % (AUTO) 0.3 % (0-1); EOSINOPHILS # (AUTO) 0.1 X10'3 (0-0.9); EOSINOPHILS % (AUTO) 0.5 % (0-6); HEMATOCRIT 25.4 % (42.0-52.0); HEMOGLOBIN 8.5 g/dl (14.0-17.9); LYMPHOCYTES # (AUTO) 0.4 X10'3 (1.1-4.8); LYMPHOCYTES % (AUTO) 3.5 % (21-51); MEAN CORPUSCULAR HEMOGLOBIN 30.2 PG (27.0-31.0); MEAN CORPUSCULAR HGB CONC 33.5 g/dL (33.0-36.5); MEAN CORPUSCULAR VOLUME 90.3 FL (78-98); MEAN PLATELET VOLUME 11.1 FL (7.4-10.4); MONOCYTES # (AUTO) 0.9 X10'3 (0-0.9); MONOCYTES % (AUTO) 8.4 % (2-12); NEUTROPHILS # (AUTO) 9.2 X10'3 (1.8-7.7); NEUTROPHILS % (AUTO) 87.3 % (42-75); PLATELET COUNT 205 X10'3 (140-440); RED BLOOD COUNT 2.81 X10'6 (4.70-6.10); WHITE BLOOD COUNT 10.5 X10'3 (4.5-11.0)
[2021-10-30 20:29] LABS: ALANINE AMINOTRANSFERASE 23 U/L (12-78); ALBUMIN/GLOBULIN RATIO 0.8 (1.1-1.5); ALKALINE PHOSPHATASE 114 IU/L (46-116); ANION GAP 13 (8-16); ASPARTATE AMINO TRANSFERASE 18 U/L (10-37); BILIRUBIN,TOTAL 0.5 MG/DL (0.1-1.0); BLOOD UREA NITROGEN 53 MG/DL (7-18); BUN/CREATININE RATIO 13.7 (5.4-32.0); CALCIUM 8.7 MG/DL (8.5-10.1); CHLORIDE 102 MMOL/L (99-107); CREATININE 3.87 MG/DL (0.60-1.10); GLUCOSE 315 MG/DL (70-104); SODIUM 135 MMOL/L (135-145); TOTAL CARBON DIOXIDE 19.7 MMOL/L (24-32); TOTAL PROTEIN 6.6 G/DL (6.4-8.2); eGFR 15 ML/MIN
[2021-10-30] MEDS ORDERED: CefTRIAXone 2gm/D5W 50ml BAG 50 ML IV ONE (20:55)
[2021-10-30] MEDS ORDERED: albuterol 2.5 MG/3 ML nebule NEB ONE (20:55)
[2021-10-30] MEDS ORDERED: methylPREDNISolone sod succ 125mg/2ml vial IV ONE (20:55)
[2021-10-30 22:30] LABS: LARGE PLATELETS FEW; PLATELET ESTIMATE NORMAL
--- NOTE | 2021-10-30 22:46 | NUR ---
PT SPO2 85% ON 6L NC, SWITCHED TO NRB AT 10L, SPO2 88%. PT COUGHING FREQUENCTYLY AND WILL DESAT. PT ALSO DESATS QUICKLY WITH TALKING. PT 90% SPO2 AT 15L NRB. AWAITING HOSPITATLIST
[2021-10-30] MEDS ORDERED: acetaminophen 325mg tablet PO PRN ×2 (23:05)
[2021-10-30] MEDS ORDERED: HYDROcodone/acetaminophen 5mg/325mg tablet PO PRN (23:05)
[2021-10-30] MEDS ORDERED: morphine 2 MG/ML inj. syringe IV PRN (23:05)
[2021-10-30] MEDS ORDERED: HYDROcodone/acetaminophen 10/325mg tab PO PRN (23:05)
[2021-10-30] MEDS ORDERED: bisacodyl 10mg suppository rectal RC PRN (23:05)
[2021-10-30] MEDS ORDERED: acetaminophen 650mg rectal suppository RC PRN (23:05)
[2021-10-30] MEDS ORDERED: ondansetron 4mg rapidly disintigrating tab PO PRN (23:05)
[2021-10-30] MEDS ORDERED: ondansetron/PF 4mg/2ml inj IV PRN (23:05)
[2021-10-30] MEDS ORDERED: mag hydrox/Alum hydrox/simeth 30ml oral suspension PO PRN (23:05)
[2021-10-30] MEDS ORDERED: diphenhydrAMINE 25mg capsule PO PRN (23:05)
[2021-10-30] MEDS ORDERED: diphenhydrAMINE 50 mg/ml inj IV PRN (23:05)
[2021-10-30] MEDS ORDERED: MESSAGE TO PHARMACY PO ONE (23:15)
[2021-10-30] MEDS ORDERED: dextrose ORAL solution 15 GM/59 ML bottle PO PRN ×2 (23:15)
[2021-10-30] MEDS ORDERED: glucagon, human recombinant 1mg kit SUBCUT PRN (23:15)
[2021-10-30] MEDS ORDERED: dextrose 50%-water 50ml dispensing syringe IV PRN ×2 (23:15)
[2021-10-30 23:27] LABS: CLARITY,URINE CLEAR (Clear); COLOR,URINE YELLOW (Yellow); GLUCOSE, URINE 250 mg/dl (Neg); KETONES,URINE NEGATIVE (Neg); LEUKOCYTE ESTERASE ,URINE NEGATIVE (Neg); NITRITES, URINE NEGATIVE (Neg); OCCULT BLOOD,URINE SMALL (Neg); PROTEIN,URINE 100 mg/dl (Neg); UROBILINOGEN,URINE 0.2 E.U/dL (0.2-1.0)
[2021-10-30 23:30] LABS: UA COLLECTION TYPE CLN CATCH MIDSTREAM
[2021-10-30 23:34] LABS: SQUAMOUS EPITHELIAL CELL,UR FEW /LPF (FEW)
[2021-10-30 23:35] LABS: BACTERIA,URINE NONE SEEN /HPF (Neg); MUCUS STRANDS FEW /LPF (Neg); RBC,URINE 0-2 /HPF (0-2); WBC,URINE 0-4 /HPF (0-4)
[2021-10-30 23:37] LABS: MAGNESIUM 1.7 MG/DL (1.5-2.4); PHOSPHORUS 3.5 MG/DL (2.3-4.5)
[2021-10-30 23:38] LABS: HEMOGLOBIN A1C 7.3 % (4.5-6.2)
[2021-10-30] MEDS: normal saline 1000ml 1,000 ML IV SCH (23:41)
[2021-10-30 23:58] LABS: PARTIAL THROMBOPLASTIN TIME 39 SECONDS (22-32)
--- NOTE | 2021-10-31 00:10 | NUR ---
spoke with dr morris regarding pt requiring more oxygen to keep spo2 above 92%. spoke with rt regarding this as well. reminded dr that pt takes lasix 20mg in am and more could be beneficial. reminded dr that pt is recieving ns @ 100. dr stated "sob was not from chf but was from bad pneumonia". stated to order abg and if o2 was low, rt to start cpap and if co2 low, start bipap. entered verbal orders.
[2021-10-31] MEDS ORDERED: PATI8.4P PO (00:32)
[2021-10-31] MEDS ORDERED: CARV12.545 PO (00:32)
[2021-10-31] MEDS ORDERED: GLUC1AUT (00:33)
[2021-10-31 01:01] LABS: ABG BASE EXCESS -9.3 mmol/L (-2.0-2.0); ABG HCO3 15.4 mmol/L (22.0-26.0); ABG PCO2 (T) 30.8 mmHg (35.0-48.0); ALLEN'S TEST POSITIVE; FLOW 12 L/min
[2021-10-31 01:01] LABS: HEMOGLOBIN 8.9 g/dl (14.0-17.9); RED CELL DISTRIBUTION WIDTH 15.9 % (11.5-14.5)
[2021-10-31 01:02] LABS: BASOPHILS % (AUTO) 0.2 % (0-1); EOSINOPHILS % (AUTO) 0.2 % (0-6); LYMPHOCYTES # (AUTO) 0.2 X10'3 (1.1-4.8); LYMPHOCYTES % (AUTO) 1.5 % (21-51); MEAN CORPUSCULAR HEMOGLOBIN 29.9 PG (27.0-31.0); MEAN CORPUSCULAR HGB CONC 33.1 g/dL (33.0-36.5); MEAN CORPUSCULAR VOLUME 90.2 FL (78-98); MEAN PLATELET VOLUME 11.3 FL (7.4-10.4); MONOCYTES # (AUTO) 0.7 X10'3 (0-0.9); MONOCYTES % (AUTO) 4.9 % (2-12); NEUTROPHILS % (AUTO) 93.2 % (42-75); PLATELET COUNT 241 X10'3 (140-440); RED BLOOD COUNT 2.99 X10'6 (4.70-6.10); WHITE BLOOD COUNT 13.9 X10'3 (4.5-11.0)
[2021-10-31 01:14] LABS: ALANINE AMINOTRANSFERASE 20 U/L (12-78); ALBUMIN 3.2 G/DL (3.4-5.0); ALBUMIN/GLOBULIN RATIO 0.8 (1.1-1.5); ALKALINE PHOSPHATASE 119 IU/L (46-116); ANION GAP 14 (8-16); ASPARTATE AMINO TRANSFERASE 18 U/L (10-37); BILIRUBIN,TOTAL 0.4 MG/DL (0.1-1.0); BLOOD UREA NITROGEN 53 MG/DL (7-18); BUN/CREATININE RATIO 13.7 (5.4-32.0); CALCIUM 8.8 MG/DL (8.5-10.1); CHLORIDE 101 MMOL/L (99-107); CREATININE 3.86 MG/DL (0.60-1.10); GLUCOSE 272 MG/DL (70-104); POTASSIUM 4.6 MMOL/L (3.5-5.1); SODIUM 135 MMOL/L (135-145); TOTAL CARBON DIOXIDE 19.9 MMOL/L (24-32); TOTAL PROTEIN 7.1 G/DL (6.4-8.2); eGFR 15 ML/MIN
[2021-10-31 01:18] LABS: CHOLESTEROL 157 MG/DL (0-200); HDL CHOLESTEROL 77 MG/DL (35-60); LDL CHOLESTEROL 47 MG/DL (50-100); TRIGLYCERIDES 89 MG/DL (20-135)
[2021-10-31 01:56] LABS: TOTAL CELLS COUNTED 100
[2021-10-31 01:57] LABS: LARGE PLATELETS FEW; PLATELET ESTIMATE NORMAL
--- NOTE | 2021-10-31 02:15 | NUR ---
Patient in room ED 5. I have received report from Lanny JOSEPH and had the opportunity to ask questions and assume patient care.
[2021-10-31 03:00] VITALS: BP 158/63
--- NOTE | 2021-10-31 06:30 | NUR ---
Problems reprioritized. Patient report given, questions answered & plan of care reviewed with Enedelia JOSEPH.
--- NOTE | 2021-10-31 06:41 | NUR ---
Patient in room MED 318. I have received report from Sandra JOSEPH and had the opportunity to ask questions and assume patient care.
[2021-10-31 07:00] VITALS: BP 138/62
[2021-10-31] MEDS ORDERED: albuterol 2.5 MG/3 ML nebule NEB PRN (07:05)
[2021-10-31] MEDS: PATIROMER CALCIUM SORBITEX 8.4 GM POWD.PACK PO SCH (08:00)
[2021-10-31] MEDS: methylPREDNISolone sod succ/PF 40mg inj. IV SCH ×2 (08:10→20:33)
[2021-10-31] MEDS: amLODIPine 5mg tablet PO SCH (08:10)
[2021-10-31] MEDS: carVEDilol 12.5mg tablet PO SCH ×2 (08:10→20:33)
[2021-10-31] MEDS: ferrous sulfate 325mg tablet PO SCH ×2 (08:11→20:32)
[2021-10-31] MEDS: docusate sod 100mg capsule PO SCH ×2 (08:11→20:00)
[2021-10-31] MEDS: atorvastatin 10mg tablet PO SCH (08:11)
[2021-10-31] MEDS: pantoprazole 40mg Tablet.DR PO SCH (08:11)
[2021-10-31] MEDS: furosemide 20MG tablet PO SCH (08:11)
[2021-10-31] MEDS: tamsulosin 0.4mg capsule PO SCH (08:12)
[2021-10-31] MEDS: ipratropium/albuterol 3ml nebule NEB SCH ×5 (08:31→22:56)
--- NOTE | 2021-10-31 09:19 | NUR ---
Cardiac/DM consult: Pt w/ lipid panel LDL 47, HDL 77 otherwise WNL, cardiac diet ed not indicated at this time. Noted A1C 7.3 which is appropriate for age, DM licha not indicated at this time. Will continue to monitor. Addendum: 10/31/21 at [address] Amended: Links added.
[2021-10-31] MEDS: CefTRIAXone/D5W-Rocephin 1gm 50 ML IV SCH (09:29)
[2021-10-31] MEDS: azithromycin/NS 500mg/250ml 250 ML IV SCH (09:29)
[2021-10-31] MEDS: normal saline 1000ml 1,000 ML IV SCH ×2 (09:30→20:34)
[2021-10-31] MEDS: insulin Lispro (HumaLOG) vial - multi-dose SQ SCH ×4 (10:23→21:16)
[2021-10-31 11:00] VITALS: BP 112/52
[2021-10-31 16:15] VITALS: BP 116/60
[2021-10-31 18:00] VITALS: BP 120/73
--- NOTE | 2021-10-31 18:25 | NUR ---
Patient in room MED 318. I have received report from JAKE Mcdaniels and had the opportunity to ask questions and assume patient care.
--- NOTE | 2021-10-31 19:12 | NUR ---
Problems reprioritized. Patient report given, questions answered & plan of care reviewed with Katia JOSEPH[].
[2021-10-31] MEDS: lactobacillus rhamnosus 10,000 MMU CELLS/CAPSULE PO SCH (20:32)
[2021-10-31] MEDS: donepezil 5mg tablet PO SCH (20:32)
[2021-10-31] MEDS: insulin glargine (Lantus) pen - multi-dose SQ SCH (21:17)
[2021-10-31] MEDS: guaiFENesin 200 MG/10 ML oral syrup UD cup PO PRN (21:19)
[2021-10-31 22:00] VITALS: BP 128/57
[2021-10-31] MEDS: morphine 2 MG/ML inj. syringe IV PRN (23:35)
[2021-11-01] VITALS (7 sets, daily range): BP systolic 103–175; BP diastolic 53–103
[2021-11-01] MEDS: ipratropium/albuterol 3ml nebule NEB SCH ×6 (03:31→23:19)
--- NOTE | 2021-11-01 06:30 | NUR ---
Problems reprioritized. Patient report given, questions answered & plan of care reviewed with JAKE English
[2021-11-01 06:42] LABS: BASOPHILS % (AUTO) 0 % (0-1); EOSINOPHILS % (AUTO) 0 % (0-6); HEMOGLOBIN 8.9 g/dl (14.0-17.9); LYMPHOCYTES # (AUTO) 0.4 X10'3 (1.1-4.8); MEAN CORPUSCULAR HEMOGLOBIN 29.7 PG (27.0-31.0); MEAN CORPUSCULAR HGB CONC 32.7 g/dL (33.0-36.5); MEAN PLATELET VOLUME 11.9 FL (7.4-10.4); MONOCYTES # (AUTO) 0.6 X10'3 (0-0.9); NEUTROPHILS # (AUTO) 13.4 X10'3 (1.8-7.7)
[2021-11-01 06:44] LABS: HEMATOCRIT 27.1 % (42.0-52.0); LYMPHOCYTES % (AUTO) 2.5 % (21-51); MONOCYTES % (AUTO) 4.1 % (2-12); NEUTROPHILS % (AUTO) 93.4 % (42-75); PLATELET COUNT 197 X10'3 (140-440); RED BLOOD COUNT 2.98 X10'6 (4.70-6.10); RED CELL DISTRIBUTION WIDTH 15.9 % (11.5-14.5); WHITE BLOOD COUNT 14.3 X10'3 (4.5-11.0)
[2021-11-01 07:03] LABS: ALANINE AMINOTRANSFERASE 18 U/L (12-78); ALBUMIN 2.8 G/DL (3.4-5.0); ALBUMIN/GLOBULIN RATIO 0.7 (1.1-1.5); ALKALINE PHOSPHATASE 98 IU/L (46-116); ANION GAP 16 (8-16); ASPARTATE AMINO TRANSFERASE 19 U/L (10-37); BILIRUBIN,TOTAL 0.3 MG/DL (0.1-1.0); BLOOD UREA NITROGEN 69 MG/DL (7-18); BUN/CREATININE RATIO 15.7 (5.4-32.0); CALCIUM 8.8 MG/DL (8.5-10.1); CHLORIDE 98 MMOL/L (99-107); GLUCOSE 323 MG/DL (70-104); POTASSIUM 4.9 MMOL/L (3.5-5.1); SODIUM 130 MMOL/L (135-145); TOTAL CARBON DIOXIDE 16.4 MMOL/L (24-32); TOTAL PROTEIN 6.9 G/DL (6.4-8.2); eGFR 13 ML/MIN
[2021-11-01] MEDS: ferrous sulfate 325mg tablet PO SCH ×2 (07:35→19:32)
[2021-11-01] MEDS: pantoprazole 40mg Tablet.DR PO SCH (07:35)
[2021-11-01] MEDS: carVEDilol 12.5mg tablet PO SCH ×2 (07:35→19:32)
[2021-11-01] MEDS: amLODIPine 5mg tablet PO SCH (07:35)
[2021-11-01] MEDS: tamsulosin 0.4mg capsule PO SCH (07:35)
[2021-11-01] MEDS: docusate sod 100mg capsule PO SCH ×2 (07:35→19:32)
[2021-11-01] MEDS: lactobacillus rhamnosus 10,000 MMU CELLS/CAPSULE PO SCH ×2 (07:35→19:31)
[2021-11-01] MEDS: atorvastatin 10mg tablet PO SCH (07:35)
[2021-11-01] MEDS: azithromycin/NS 500mg/250ml 250 ML IV SCH (07:35)
[2021-11-01] MEDS: CefTRIAXone/D5W-Rocephin 1gm 50 ML IV SCH (07:36)
[2021-11-01] MEDS: methylPREDNISolone sod succ/PF 40mg inj. IV SCH ×2 (07:36→19:31)
[2021-11-01] MEDS: furosemide 20MG tablet PO SCH (07:40)
[2021-11-01 07:44] LABS: PLATELET ESTIMATE NORMAL
[2021-11-01 07:47] LABS: ANISOCYTOSIS 1+; BURR CELLS 1+; LARGE PLATELETS FEW
[2021-11-01 07:48] LABS: ROULEAUX 1+
[2021-11-01] MEDS: PATIROMER CALCIUM SORBITEX 8.4 GM POWD.PACK PO SCH (08:00)
[2021-11-01] MEDS: insulin Lispro (HumaLOG) vial - multi-dose SQ SCH ×3 (09:15→18:53)
[2021-11-01] MEDS ORDERED: LIDOcaine 1% (10mg/ml) 2ml vial ONE (12:56)
--- NOTE | 2021-11-01 18:18 | NUR ---
Patient in room MED 318. I have received report from JAKE English and had the opportunity to ask questions and assume patient care.
[2021-11-01] MEDS: donepezil 5mg tablet PO SCH (19:32)
[2021-11-01] MEDS: morphine 2 MG/ML inj. syringe IV PRN (21:05)
[2021-11-01] MEDS: guaiFENesin 200 MG/10 ML oral syrup UD cup PO PRN (21:09)
[2021-11-01] MEDS: insulin glargine (Lantus) pen - multi-dose SQ SCH (21:12)
--- NOTE | 2021-11-01 22:08 | NUR ---
Problems reprioritized. Patient report given, questions answered & plan of care reviewed with JAKE Berger.
[2021-11-02 02:00] VITALS: BP 117/63
[2021-11-02] MEDS: ipratropium/albuterol 3ml nebule NEB SCH ×6 (03:07→23:14)
[2021-11-02 06:00] VITALS: BP 116/66
[2021-11-02 06:12] LABS: BASOPHILS % (AUTO) 0.1 % (0-1); EOSINOPHILS % (AUTO) 0 % (0-6); HEMATOCRIT 24.7 % (42.0-52.0); HEMOGLOBIN 8.3 g/dl (14.0-17.9); LYMPHOCYTES # (AUTO) 0.4 X10'3 (1.1-4.8); LYMPHOCYTES % (AUTO) 2.5 % (21-51); MEAN CORPUSCULAR HGB CONC 33.6 g/dL (33.0-36.5); MEAN CORPUSCULAR VOLUME 89.4 FL (78-98); MONOCYTES # (AUTO) 0.4 X10'3 (0-0.9); NEUTROPHILS # (AUTO) 13.6 X10'3 (1.8-7.7); NEUTROPHILS % (AUTO) 94.4 % (42-75); PLATELET COUNT 226 X10'3 (140-440); RED BLOOD COUNT 2.76 X10'6 (4.70-6.10); RED CELL DISTRIBUTION WIDTH 15.7 % (11.5-14.5); WHITE BLOOD COUNT 14.5 X10'3 (4.5-11.0)
[2021-11-02 06:14] LABS: ALANINE AMINOTRANSFERASE 20 U/L (12-78); ALBUMIN 2.8 G/DL (3.4-5.0); ALBUMIN/GLOBULIN RATIO 0.7 (1.1-1.5); ALKALINE PHOSPHATASE 99 IU/L (46-116); ANION GAP 16 (8-16); ASPARTATE AMINO TRANSFERASE 20 U/L (10-37); BILIRUBIN,TOTAL 0.3 MG/DL (0.1-1.0); BLOOD UREA NITROGEN 96 MG/DL (7-18); CALCIUM 8.4 MG/DL (8.5-10.1); CHLORIDE 97 MMOL/L (99-107); CREATININE 4.81 MG/DL (0.60-1.10); GLUCOSE 243 MG/DL (70-104); POTASSIUM 4.9 MMOL/L (3.5-5.1); SODIUM 130 MMOL/L (135-145); TOTAL CARBON DIOXIDE 16.6 MMOL/L (24-32); TOTAL PROTEIN 6.6 G/DL (6.4-8.2); eGFR 12 ML/MIN
--- NOTE | 2021-11-02 06:50 | NUR ---
Patient in room MED 318. I have received report from JAKE RENTERIA, and had the opportunity to ask questions and assume patient care.
[2021-11-02] MEDS: methylPREDNISolone sod succ/PF 40mg inj. IV SCH ×2 (08:23→11:45)
[2021-11-02] MEDS: CefTRIAXone/D5W-Rocephin 1gm 50 ML IV SCH (08:24)
[2021-11-02] MEDS: carVEDilol 12.5mg tablet PO SCH ×2 (08:30→19:06)
[2021-11-02] MEDS: docusate sod 100mg capsule PO SCH ×2 (08:30→19:03)
[2021-11-02] MEDS: lactobacillus rhamnosus 10,000 MMU CELLS/CAPSULE PO SCH ×2 (08:30→19:07)
[2021-11-02] MEDS: atorvastatin 10mg tablet PO SCH (08:30)
[2021-11-02] MEDS: furosemide 20MG tablet PO SCH (08:30)
[2021-11-02] MEDS: ferrous sulfate 325mg tablet PO SCH ×2 (08:30→19:07)
[2021-11-02] MEDS: tamsulosin 0.4mg capsule PO SCH (08:31)
[2021-11-02] MEDS: amLODIPine 5mg tablet PO SCH (08:31)
[2021-11-02] MEDS: pantoprazole 40mg Tablet.DR PO SCH (08:31)
[2021-11-02] MEDS: insulin Lispro (HumaLOG) vial - multi-dose SQ SCH ×3 (09:56→19:03)
[2021-11-02] MEDS: azithromycin/NS 500mg/250ml 250 ML IV SCH (09:57)
[2021-11-02 10:00] VITALS: BP 132/55
--- NOTE | 2021-11-02 11:55 | NUR ---
PT'S BG-340, NOTIFIED. DISCONTINUED 1145 SOLUM[address]OL.
[2021-11-02] MEDS: PATIROMER CALCIUM SORBITEX 8.4 GM POWD.PACK PO SCH (12:00)
[2021-11-02 14:00] VITALS: BP 125/58
[2021-11-02 18:00] VITALS: BP 128/96
--- NOTE | 2021-11-02 18:33 | NUR ---
Problems reprioritized. Patient report given, questions answered & plan of care reviewed with JAKE POLO.
--- NOTE | 2021-11-02 18:33 | NUR ---
Patient in room MED 318. I have received report from JAYDE JOSEPH and had the opportunity to ask questions and assume patient care.
[2021-11-02] MEDS: donepezil 5mg tablet PO SCH (19:08)
[2021-11-02] MEDS: guaiFENesin 200 MG/10 ML oral syrup UD cup PO PRN (19:10)
[2021-11-02] MEDS: morphine 2 MG/ML inj. syringe IV PRN (21:07)
[2021-11-02] MEDS: insulin glargine (Lantus) pen - multi-dose SQ SCH (21:18)
[2021-11-02] MEDS: acetaminophen w/codeine (30MG) #3 tablet PO PRN (21:43)
[2021-11-02 22:00] VITALS: BP 122/50
[2021-11-03 02:00] VITALS: BP 134/69
[2021-11-03] MEDS: ipratropium/albuterol 3ml nebule NEB SCH ×5 (03:11→23:01)
[2021-11-03] MEDS: acetaminophen w/codeine (30MG) #3 tablet PO PRN (04:25)
[2021-11-03] MEDS: morphine 2 MG/ML inj. syringe IV PRN (04:26)
[2021-11-03 06:00] VITALS: BP 143/66
[2021-11-03 06:40] LABS: BASOPHILS % (AUTO) 0 % (0-1); EOSINOPHILS % (AUTO) 0 % (0-6); HEMATOCRIT 25.3 % (42.0-52.0); HEMOGLOBIN 8.4 g/dl (14.0-17.9); LYMPHOCYTES # (AUTO) 0.3 X10'3 (1.1-4.8); LYMPHOCYTES % (AUTO) 2.8 % (21-51); MEAN CORPUSCULAR HEMOGLOBIN 29.5 PG (27.0-31.0); MEAN CORPUSCULAR VOLUME 89.4 FL (78-98); MEAN PLATELET VOLUME 11.9 FL (7.4-10.4); MONOCYTES # (AUTO) 0.5 X10'3 (0-0.9); MONOCYTES % (AUTO) 4.3 % (2-12); NEUTROPHILS % (AUTO) 92.9 % (42-75); PLATELET COUNT 233 X10'3 (140-440); RED BLOOD COUNT 2.83 X10'6 (4.70-6.10); RED CELL DISTRIBUTION WIDTH 15.3 % (11.5-14.5); WHITE BLOOD COUNT 11.9 X10'3 (4.5-11.0)
--- NOTE | 2021-11-03 06:45 | NUR ---
PATIENT HAS INCREASING SWELLING/EDEMA LEFT ARM-CALLED MD GIL TO OBTAIN DIAGNOSTIC US TO ASSESS. AMANDA JOSEPH
--- NOTE | 2021-11-03 06:47 | NUR ---
Problems reprioritized. Patient report given, questions answered & plan of care reviewed with JAYDE JOSEPH.
--- NOTE | 2021-11-03 07:02 | NUR ---
Patient in room MED 318. I have received report from JAKE POLO, and had the opportunity to ask questions and assume patient care.
[2021-11-03 07:05] LABS: ALANINE AMINOTRANSFERASE 21 U/L (12-78); ALBUMIN 2.9 G/DL (3.4-5.0); ALBUMIN/GLOBULIN RATIO 0.8 (1.1-1.5); ALKALINE PHOSPHATASE 96 IU/L (46-116); ANION GAP 17 (8-16); ASPARTATE AMINO TRANSFERASE 22 U/L (10-37); BILIRUBIN,TOTAL 0.3 MG/DL (0.1-1.0); BLOOD UREA NITROGEN 107 MG/DL (7-18); BUN/CREATININE RATIO 20.8 (5.4-32.0); CALCIUM 8.3 MG/DL (8.5-10.1); CHLORIDE 94 MMOL/L (99-107); CREATININE 5.15 MG/DL (0.60-1.10); GLUCOSE 235 MG/DL (70-104); POTASSIUM 5.1 MMOL/L (3.5-5.1); SODIUM 125 MMOL/L (135-145); TOTAL PROTEIN 6.5 G/DL (6.4-8.2); eGFR 11 ML/MIN
[2021-11-03 07:09] LABS: TOTAL CARBON DIOXIDE 14.3 MMOL/L (24-32)
--- NOTE | 2021-11-03 07:16 | NUR ---
PAGE SENT PAGER ID: [phone] MESSAGE: 318A, LEANNE CAT, CRITICAL LAB, CO2 14.3. THANK YOU, JAYDE Martínez [id number]
--- NOTE | 2021-11-03 07:16 | NUR ---
Patient in room MED 318. I have received report from JAKE POLO, and had the opportunity to ask questions and assume patient care.
[2021-11-03] MEDS: CefTRIAXone/D5W-Rocephin 1gm 50 ML IV SCH (08:03)
[2021-11-03] MEDS: methylPREDNISolone sod succ/PF 40mg inj. IV SCH (08:10)
[2021-11-03] MEDS: ferrous sulfate 325mg tablet PO SCH ×2 (08:13→09:10)
[2021-11-03] MEDS: pantoprazole 40mg Tablet.DR PO SCH (08:13)
[2021-11-03] MEDS: lactobacillus rhamnosus 10,000 MMU CELLS/CAPSULE PO SCH (08:13)
[2021-11-03] MEDS: docusate sod 100mg capsule PO SCH (08:13)
[2021-11-03] MEDS: tamsulosin 0.4mg capsule PO SCH (08:13)
[2021-11-03] MEDS: carVEDilol 12.5mg tablet PO SCH ×2 (08:14→19:05)
[2021-11-03] MEDS: amLODIPine 5mg tablet PO SCH (08:14)
[2021-11-03] MEDS: atorvastatin 10mg tablet PO SCH (08:14)
[2021-11-03] MEDS ORDERED: sodium bicarbonate (8.4%) inj. 50 MEQ in dextrose 5%-water 1,000 ML IV SCH (09:10)
[2021-11-03 09:57] LABS: LARGE PLATELETS FEW; PLATELET ESTIMATE NORMAL
[2021-11-03 09:58] LABS: ANISOCYTOSIS 1+; BURR CELLS 2+
[2021-11-03 10:00] VITALS: BP 132/56
[2021-11-03] MEDS: azithromycin/NS 500mg/250ml 250 ML IV SCH (10:49)
[2021-11-03] MEDS: insulin Lispro (HumaLOG) vial - multi-dose SQ SCH ×3 (10:55→19:10)
[2021-11-03] MEDS: PATIROMER CALCIUM SORBITEX 8.4 GM POWD.PACK PO SCH (13:34)
[2021-11-03] MEDS: sodium bicarbonate (8.4%) inj. 150 MEQ in dextrose 5%-water 1,000 ML IV SCH (13:49)
[2021-11-03 14:00] VITALS: BP 133/67
--- NOTE | 2021-11-03 14:41 | NUR ---
Initial: Pt admitted w/ COPD exacerbation and PNA, acute respiratory failure an acute renal failure, only w/ one kidney per EMR. Pt currently on Renal/HH/CCHO diet w/ avg intake 94% x 7 meals meeting minimum nutrient needs at this time. Pt also receiving NaBicarb/D5 at 70ml/hr which provides 285kcals. Recommend d/c Heart healthy portion of diet if MD agreeable as lipid panel WNL and low serum Na. LBM 10/30, recommend adding routine bowel care per MD discretion. Will continue to monitor. Recs: 1. Continue Renal/CCHO diet, d/c Heart Healthy diet if MD agreeable 2. Monitor need for additional protein 3. Bowel care per rx 4. Scaled wt this admit, subsequent weekly wts Addendum: 11/03/21 at [address] Amended: Links added.
[2021-11-03 15:19] LABS: ABG BASE EXCESS -9.3 mmol/L (-2.0-2.0); ABG HCO3 15.3 mmol/L (22.0-26.0); ABG OXYGEN SATURATION 84.4 % (94-97); ABG PO2 (T) 52.2 mmHg (75.0-100.0); ALLEN'S TEST POSITIVE; FCOHb 0.3 % (0.0-3.9); FLOW 4 L/min; FMetHb 0.4 % (0.0-1.5); FO2Hb 83.8 % (94-97); TOTAL HEMOGLOBIN 9.4 G/dl (14.0-18.0)
[2021-11-03 18:00] VITALS: BP 146/71
--- NOTE | 2021-11-03 18:30 | NUR ---
Pt sitting up in bed AAOX4 deneid any discomfort. IV fluid infusing well via right arm IV access. Pt on oxygen via NC and saturating well. Call light , bedside table placed within reach. Pt instructed to call for assistance as needed.
--- NOTE | 2021-11-03 18:37 | NUR ---
Problems reprioritized. Patient report given, questions answered & plan of care reviewed with JAKE MCFADDEN.
[2021-11-03] MEDS: magnesium hydroxide 30ml (MOM) UD suspension PO PRN (19:16)
[2021-11-03] MEDS: insulin glargine (Lantus) pen - multi-dose SQ SCH (21:24)
[2021-11-03 22:00] VITALS: BP 132/65
--- NOTE | 2021-11-03 23:30 | NUR ---
Rounding in progress pt reported not able to sleep denied any other discomfort; medication given.
[2021-11-03] MEDS: temazepam 15mg capsule PO PRN (23:33)
[2021-11-04 02:00] VITALS: BP 146/69
[2021-11-04] MEDS: ipratropium/albuterol 3ml nebule NEB SCH ×6 (03:20→23:44)
[2021-11-04] MEDS: sodium bicarbonate (8.4%) inj. 150 MEQ in dextrose 5%-water 1,000 ML IV SCH (04:40)
[2021-11-04 06:00] VITALS: BP 142/62
[2021-11-04 06:26] LABS: BASOPHILS % (AUTO) 0.1 % (0-1); EOSINOPHILS % (AUTO) 0 % (0-6); HEMATOCRIT 25.3 % (42.0-52.0); HEMOGLOBIN 8.4 g/dl (14.0-17.9); LYMPHOCYTES # (AUTO) 0.4 X10'3 (1.1-4.8); LYMPHOCYTES % (AUTO) 2.5 % (21-51); MEAN CORPUSCULAR HEMOGLOBIN 29.2 PG (27.0-31.0); MEAN CORPUSCULAR HGB CONC 33.3 g/dL (33.0-36.5); MEAN CORPUSCULAR VOLUME 87.8 FL (78-98); MEAN PLATELET VOLUME 11.2 FL (7.4-10.4); MONOCYTES # (AUTO) 0.9 X10'3 (0-0.9); MONOCYTES % (AUTO) 6.2 % (2-12); NEUTROPHILS # (AUTO) 13.3 X10'3 (1.8-7.7); NEUTROPHILS % (AUTO) 91.2 % (42-75); PLATELET COUNT 244 X10'3 (140-440); RED BLOOD COUNT 2.88 X10'6 (4.70-6.10); RED CELL DISTRIBUTION WIDTH 15.6 % (11.5-14.5); WHITE BLOOD COUNT 14.5 X10'3 (4.5-11.0)
--- NOTE | 2021-11-04 06:49 | NUR ---
Pt reported sleeping well after being medicated. No signs of any discomfort noted. Pt denied any complaints.
[2021-11-04 07:23] LABS: ALANINE AMINOTRANSFERASE 19 U/L (12-78); ALBUMIN 2.9 G/DL (3.4-5.0); ALBUMIN/GLOBULIN RATIO 0.8 (1.1-1.5); ALKALINE PHOSPHATASE 94 IU/L (46-116); ANION GAP 14 (8-16); ASPARTATE AMINO TRANSFERASE 21 U/L (10-37); BILIRUBIN,TOTAL 0.3 MG/DL (0.1-1.0); BLOOD UREA NITROGEN 113 MG/DL (7-18); BUN/CREATININE RATIO 22.2 (5.4-32.0); CHLORIDE 94 MMOL/L (99-107); CREATININE 5.08 MG/DL (0.60-1.10); GLUCOSE 216 MG/DL (70-104); POTASSIUM 4.7 MMOL/L (3.5-5.1); SODIUM 126 MMOL/L (135-145); TOTAL CARBON DIOXIDE 18.2 MMOL/L (24-32); TOTAL PROTEIN 6.5 G/DL (6.4-8.2); eGFR 11 ML/MIN
[2021-11-04] MEDS ORDERED: EPOETIN ALFA-EPBX 20,000 UNIT/ML 1 ML MDV IV ONE (07:35)
[2021-11-04] MEDS ORDERED: albumin (human) 25% 100ml IV 100 ML IV PRN (07:35)
[2021-11-04] MEDS ORDERED: heparin 1,000 units/ml 10ml inj HE ONE ×2 (07:40)
[2021-11-04] MEDS: PATIROMER CALCIUM SORBITEX 8.4 GM POWD.PACK PO SCH (08:00)
[2021-11-04] MEDS: methylPREDNISolone sod succ/PF 40mg inj. IV SCH (08:18)
[2021-11-04] MEDS: azithromycin/NS 500mg/250ml 250 ML IV SCH (08:18)
[2021-11-04] MEDS: tamsulosin 0.4mg capsule PO SCH (08:18)
[2021-11-04] MEDS: ferrous sulfate 325mg tablet PO SCH (08:19)
[2021-11-04] MEDS: amLODIPine 5mg tablet PO SCH (08:19)
[2021-11-04] MEDS: atorvastatin 10mg tablet PO SCH (08:19)
[2021-11-04] MEDS: carVEDilol 12.5mg tablet PO SCH ×2 (08:20→19:17)
[2021-11-04] MEDS: CefTRIAXone/D5W-Rocephin 1gm 50 ML IV SCH (09:03)
[2021-11-04] MEDS ORDERED: heparin 1,000unit/ml 10ml vial 10 ML ONE (09:08)
[2021-11-04] MEDS ORDERED: LIDOCAINE 1%/EPI 1:100,000 inj. 10 ML multi-dose vial ONE (09:08)
[2021-11-04] MEDS ORDERED: fentaNYL/PF 50MCG/1 ML 2ML syringe ONE (09:09)
[2021-11-04] MEDS: insulin Lispro (HumaLOG) vial - multi-dose SQ SCH ×3 (09:11→19:20)
[2021-11-04 11:00] VITALS: BP 138/64
--- NOTE | 2021-11-04 17:08 | NUR ---
Orders for Hep B total antibody, Hep C lab, chest x-ray to rule out TB, and COVID test put in per Dr. Rosado for patient to be accepted for outpatient dialysis.
[2021-11-04 18:00] VITALS: BP 126/71
[2021-11-04] MEDS: magnesium hydroxide 30ml (MOM) UD suspension PO PRN (20:00)
[2021-11-04] MEDS: temazepam 15mg capsule PO PRN (20:00)
[2021-11-04] MEDS: guaiFENesin 200 MG/10 ML oral syrup UD cup PO PRN (20:00)
[2021-11-04] MEDS: insulin glargine (Lantus) pen - multi-dose SQ SCH (21:00)
[2021-11-04 22:00] VITALS: BP 129/70
--- NOTE | 2021-11-05 01:30 | NUR ---
Hear pt coughing, pt reported unable to sleep due to cough and pain while coughing; pt medicated with cough medicine and morphine. Continue to assess pt while rounding.
[2021-11-05] MEDS: guaiFENesin 200 MG/10 ML oral syrup UD cup PO PRN ×2 (01:40→21:41)
[2021-11-05] MEDS: morphine 2 MG/ML inj. syringe IV PRN (01:41)
[2021-11-05 02:00] VITALS: BP 138/72
[2021-11-05] MEDS: ipratropium/albuterol 3ml nebule NEB SCH ×6 (02:18→23:44)
[2021-11-05 06:00] VITALS: BP 126/68
--- NOTE | 2021-11-05 06:40 | NUR ---
Problems reprioritized. Patient report given, questions answered & plan of care reviewed with JAKE Pineda. Pt was sitting up in bed watching TV. Still has a strong cough. Pt was turned with both RN's on his side for comfort.
[2021-11-05] MEDS: CefTRIAXone/D5W-Rocephin 1gm 50 ML IV SCH (07:46)
[2021-11-05] MEDS: azithromycin/NS 500mg/250ml 250 ML IV SCH (07:47)
[2021-11-05] MEDS ORDERED: albumin (human) 25% 100ml IV 100 ML IV PRN (08:00)
[2021-11-05] MEDS ORDERED: EPOETIN ALFA-EPBX 20,000 UNIT/ML 1 ML MDV IV ONE (08:00)
[2021-11-05] MEDS ORDERED: heparin 1,000 units/ml 10ml inj HE ONE ×2 (08:00)
[2021-11-05] MEDS: atorvastatin 10mg tablet PO SCH (08:00)
[2021-11-05] MEDS: methylPREDNISolone sod succ/PF 40mg inj. IV SCH (08:00)
[2021-11-05] MEDS: carVEDilol 12.5mg tablet PO SCH ×2 (09:26→21:19)
[2021-11-05] MEDS: tamsulosin 0.4mg capsule PO SCH (09:26)
[2021-11-05] MEDS: amLODIPine 5mg tablet PO SCH (09:35)
[2021-11-05] MEDS: PATIROMER CALCIUM SORBITEX 8.4 GM POWD.PACK PO SCH (09:36)
[2021-11-05] MEDS: ferrous sulfate 325mg tablet PO SCH (09:36)
[2021-11-05] MEDS: insulin Lispro (HumaLOG) vial - multi-dose SQ SCH ×3 (09:59→19:13)
[2021-11-05 10:00] VITALS: BP 132/65
[2021-11-05 12:15] LABS: ALBUMIN 2.6 G/DL (3.4-5.0); ANION GAP 14 (8-16); BLOOD UREA NITROGEN 80 MG/DL (7-18); CALCIUM 7.6 MG/DL (8.5-10.1); CHLORIDE 95 MMOL/L (99-107); CREATININE 3.81 MG/DL (0.60-1.10); GLUCOSE 375 MG/DL (70-104); POTASSIUM 4.7 MMOL/L (3.5-5.1); SODIUM 130 MMOL/L (135-145); TOTAL CARBON DIOXIDE 21.2 MMOL/L (24-32); eGFR 15 ML/MIN
[2021-11-05 14:00] VITALS: BP 126/72
[2021-11-05 14:13] LABS: HEMATOCRIT 25.9 % (42.0-52.0); HEMOGLOBIN 8.7 g/dl (14.0-17.9); MEAN CORPUSCULAR HEMOGLOBIN 29.7 PG (27.0-31.0); MEAN CORPUSCULAR HGB CONC 33.7 g/dL (33.0-36.5); MEAN CORPUSCULAR VOLUME 88.1 FL (78-98); MEAN PLATELET VOLUME 10.6 FL (7.4-10.4); PLATELET COUNT 251 X10'3 (140-440); RED BLOOD COUNT 2.94 X10'6 (4.70-6.10); RED CELL DISTRIBUTION WIDTH 15.2 % (11.5-14.5); WHITE BLOOD COUNT 11.8 X10'3 (4.5-11.0)
[2021-11-05 18:00] VITALS: BP 104/56
--- NOTE | 2021-11-05 18:46 | NUR ---
Patient in room MED 318. I have received report from Krystal JOSEPH and had the opportunity to ask questions and assume patient care.
[2021-11-05] MEDS: insulin glargine (Lantus) pen - multi-dose SQ SCH (21:24)
--- NOTE | 2021-11-05 21:25 | NUR ---
Pts Lantus dose decreased from 10units to 9units per protocol due to pts decreased blood sugar in early AM
[2021-11-05 22:00] VITALS: BP 140/74
[2021-11-06 02:00] VITALS: BP 136/78
[2021-11-06] MEDS: ipratropium/albuterol 3ml nebule NEB SCH ×6 (03:11→23:59)
--- NOTE | 2021-11-06 06:27 | NUR ---
Patient in room MED 318. I have received report from Soo JOSEPH and had the opportunity to ask questions and assume patient care.
[2021-11-06 06:30] VITALS: BP 137/72
[2021-11-06 06:34] LABS: BASOPHILS % (AUTO) 0 % (0-1); EOSINOPHILS % (AUTO) 0 % (0-6); HEMATOCRIT 26.2 % (42.0-52.0); HEMOGLOBIN 8.8 g/dl (14.0-17.9); LYMPHOCYTES # (AUTO) 0.4 X10'3 (1.1-4.8); LYMPHOCYTES % (AUTO) 2.7 % (21-51); MEAN CORPUSCULAR HEMOGLOBIN 29.7 PG (27.0-31.0); MEAN CORPUSCULAR HGB CONC 33.5 g/dL (33.0-36.5); MEAN CORPUSCULAR VOLUME 88.5 FL (78-98); MEAN PLATELET VOLUME 11.4 FL (7.4-10.4); MONOCYTES # (AUTO) 1.1 X10'3 (0-0.9); MONOCYTES % (AUTO) 7.3 % (2-12); NEUTROPHILS # (AUTO) 13.1 X10'3 (1.8-7.7); PLATELET COUNT 252 X10'3 (140-440); RED BLOOD COUNT 2.96 X10'6 (4.70-6.10); RED CELL DISTRIBUTION WIDTH 15.4 % (11.5-14.5); WHITE BLOOD COUNT 14.5 X10'3 (4.5-11.0)
[2021-11-06 06:36] LABS: ALBUMIN 2.6 G/DL (3.4-5.0); ANION GAP 9 (8-16); BLOOD UREA NITROGEN 55 MG/DL (7-18); BUN/CREATININE RATIO 19.8 (5.4-32.0); CHLORIDE 98 MMOL/L (99-107); CREATININE 2.78 MG/DL (0.60-1.10); GLUCOSE 236 MG/DL (70-104); SODIUM 132 MMOL/L (135-145); TOTAL CARBON DIOXIDE 25.5 MMOL/L (24-32); eGFR 22 ML/MIN
--- NOTE | 2021-11-06 06:53 | NUR ---
Patient in room MED 318. I have received report from broderick maher and had the opportunity to ask questions and assume patient care.
[2021-11-06 07:52] LABS: LARGE PLATELETS FEW; PLATELET ESTIMATE NORMAL; SCHISTOCYTES FEW
[2021-11-06] MEDS: azithromycin/NS 500mg/250ml 250 ML IV SCH (07:54)
[2021-11-06] MEDS: amLODIPine 5mg tablet PO SCH (07:55)
[2021-11-06] MEDS: carVEDilol 12.5mg tablet PO SCH ×2 (07:55→20:34)
[2021-11-06] MEDS: ferrous sulfate 325mg tablet PO SCH (07:55)
[2021-11-06] MEDS: atorvastatin 10mg tablet PO SCH (07:55)
[2021-11-06] MEDS: tamsulosin 0.4mg capsule PO SCH (07:55)
[2021-11-06] MEDS: methylPREDNISolone sod succ/PF 40mg inj. IV SCH (07:56)
[2021-11-06 10:00] VITALS: BP 96/60
[2021-11-06] MEDS: CefTRIAXone/D5W-Rocephin 1gm 50 ML IV SCH (10:41)
[2021-11-06] MEDS: insulin Lispro (HumaLOG) vial - multi-dose SQ SCH ×3 (10:45→19:53)
[2021-11-06] MEDS: PATIROMER CALCIUM SORBITEX 8.4 GM POWD.PACK PO SCH (14:28)
[2021-11-06 14:57] LABS: HEP B CORE AB, TOT Negative (Negative); HEPATITIS C ANTIBODY <0.1 s/co ratio (0.0-0.9)
[2021-11-06 14:57] LABS: HBSAG SCREEN Negative (Negative)
[2021-11-06 16:48] VITALS: BP 140/67
--- NOTE | 2021-11-06 18:47 | NUR ---
Problems reprioritized. Patient report given, questions answered & plan of care reviewed with thomas maher.
[2021-11-06 20:00] VITALS: BP 127/78
[2021-11-06] MEDS: insulin glargine (Lantus) pen - multi-dose SQ SCH (22:21)
[2021-11-07 02:00] VITALS: BP 143/70
[2021-11-07] MEDS: ipratropium/albuterol 3ml nebule NEB SCH ×6 (03:27→23:54)
--- NOTE | 2021-11-07 06:58 | NUR ---
Patient in room MED 318. I have received report from Shahzad JOSEPH traveler and had the opportunity to ask questions and assume patient care.
[2021-11-07 07:15] VITALS: BP 146/73
[2021-11-07] MEDS: PATIROMER CALCIUM SORBITEX 8.4 GM POWD.PACK PO SCH (08:00)
[2021-11-07] MEDS ORDERED: EPOETIN ALFA-EPBX 20,000 UNIT/ML 1 ML MDV IV ONE (08:05)
[2021-11-07] MEDS: tamsulosin 0.4mg capsule PO SCH (08:10)
[2021-11-07] MEDS ORDERED: heparin 1,000 units/ml 10ml inj HE ONE ×2 (08:10)
[2021-11-07] MEDS: ferrous sulfate 325mg tablet PO SCH (08:11)
[2021-11-07] MEDS: carVEDilol 12.5mg tablet PO SCH ×2 (08:11→20:45)
[2021-11-07] MEDS: atorvastatin 10mg tablet PO SCH (08:11)
[2021-11-07] MEDS: prednisone 10mg tablet PO SCH (08:11)
[2021-11-07] MEDS: amLODIPine 5mg tablet PO SCH (08:12)
[2021-11-07] MEDS: insulin Lispro (HumaLOG) vial - multi-dose SQ SCH ×3 (09:38→20:45)
[2021-11-07 10:00] VITALS: BP 131/67
[2021-11-07 14:00] VITALS: BP 133/75
--- NOTE | 2021-11-07 18:23 | NUR ---
Problems reprioritized. Patient report given, questions answered & plan of care reviewed with Shahzad JOSEPH traveler.
[2021-11-07 18:40] LABS: ALBUMIN 2.6 G/DL (3.4-5.0); ANION GAP 7 (8-16); BLOOD UREA NITROGEN 43 MG/DL (7-18); BUN/CREATININE RATIO 19.7 (5.4-32.0); CALCIUM 8.1 MG/DL (8.5-10.1); CHLORIDE 97 MMOL/L (99-107); CREATININE 2.18 MG/DL (0.60-1.10); GLUCOSE 144 MG/DL (70-104); POTASSIUM 4.5 MMOL/L (3.5-5.1); SODIUM 130 MMOL/L (135-145); TOTAL CARBON DIOXIDE 25.9 MMOL/L (24-32); eGFR 29 ML/MIN
[2021-11-07] MEDS: guaiFENesin 200 MG/10 ML oral syrup UD cup PO PRN (21:06)
[2021-11-07 22:00] VITALS: BP 130/67
[2021-11-07] MEDS: insulin glargine (Lantus) pen - multi-dose SQ SCH (22:44)
[2021-11-08 02:00] VITALS: BP 168/49
[2021-11-08] MEDS: ipratropium/albuterol 3ml nebule NEB SCH ×4 (03:36→15:27)
[2021-11-08 06:00] VITALS: BP 139/72
[2021-11-08 06:21] LABS: BASOPHILS % (AUTO) 0.1 % (0-1); EOSINOPHILS # (AUTO) 0.2 X10'3 (0-0.9); EOSINOPHILS % (AUTO) 1.1 % (0-6); HEMATOCRIT 27.8 % (42.0-52.0); HEMOGLOBIN 9.2 g/dl (14.0-17.9); LYMPHOCYTES # (AUTO) 1.2 X10'3 (1.1-4.8); LYMPHOCYTES % (AUTO) 8.2 % (21-51); MEAN CORPUSCULAR HEMOGLOBIN 29.5 PG (27.0-31.0); MEAN CORPUSCULAR HGB CONC 33.1 g/dL (33.0-36.5); MEAN CORPUSCULAR VOLUME 89.3 FL (78-98); MEAN PLATELET VOLUME 10.7 FL (7.4-10.4); MONOCYTES # (AUTO) 1.8 X10'3 (0-0.9); MONOCYTES % (AUTO) 11.6 % (2-12); NEUTROPHILS # (AUTO) 12.1 X10'3 (1.8-7.7); PLATELET COUNT 268 X10'3 (140-440); RED BLOOD COUNT 3.12 X10'6 (4.70-6.10); RED CELL DISTRIBUTION WIDTH 15.2 % (11.5-14.5); WHITE BLOOD COUNT 15.3 X10'3 (4.5-11.0)
[2021-11-08 06:29] LABS: ALBUMIN 2.5 G/DL (3.4-5.0); ANION GAP 5 (8-16); BLOOD UREA NITROGEN 51 MG/DL (7-18); BUN/CREATININE RATIO 20.7 (5.4-32.0); CALCIUM 8.2 MG/DL (8.5-10.1); CHLORIDE 99 MMOL/L (99-107); CREATININE 2.46 MG/DL (0.60-1.10); GLUCOSE 87 MG/DL (70-104); POTASSIUM 4.2 MMOL/L (3.5-5.1); SODIUM 131 MMOL/L (135-145); TOTAL CARBON DIOXIDE 26.7 MMOL/L (24-32); eGFR 26 ML/MIN
--- NOTE | 2021-11-08 07:19 | NUR ---
Patient in room MED 318. I have received report from JAKE REYES, and had the opportunity to ask questions and assume patient care.
[2021-11-08] MEDS: ferrous sulfate 325mg tablet PO SCH (07:45)
[2021-11-08] MEDS: carVEDilol 12.5mg tablet PO SCH (07:45)
[2021-11-08] MEDS: tamsulosin 0.4mg capsule PO SCH (07:45)
[2021-11-08] MEDS: guaiFENesin 200 MG/10 ML oral syrup UD cup PO PRN (07:45)
[2021-11-08] MEDS: atorvastatin 10mg tablet PO SCH (07:45)
[2021-11-08] MEDS: prednisone 10mg tablet PO SCH (07:45)
[2021-11-08] MEDS: amLODIPine 5mg tablet PO SCH (07:45)
[2021-11-08] MEDS: insulin Lispro (HumaLOG) vial - multi-dose SQ SCH (09:05)
[2021-11-08 11:00] VITALS: BP 111/66
[2021-11-08] MEDS: PATIROMER CALCIUM SORBITEX 8.4 GM POWD.PACK PO SCH (11:20)
--- NOTE | 2021-11-08 13:16 | NUR ---
PAGE SENT PAGER ID: [phone] MESSAGE: 318A, LEANNE CAT 1200 BG WAS 51, PT GIVEN JUICE AND BG INCREASED TO 61, BG TAKEN AFTER LUNCH - 128, HOLDING INSULIN. PT WILL WALK ON UNIT. THANK YOU, JAYDE Martínez-[phone]
--- NOTE | 2021-11-08 13:25 | NUR ---
Page Sent TO HUMZA MD PAGER ID: [phone] MESSAGE: MESSAGE: 318A, LEANNE CAT 1200 BG WAS 51, PT GIVEN JUICE AND BG INCREASED TO 61, BG TAKEN AFTER LUNCH - 128, HOLDING INSULIN. PT WILL WALK ON UNIT. THANK YOU, JAYDE Martínez-[phone]
[2021-11-08 14:00] VITALS: BP 131/65
--- NOTE | 2021-11-08 16:15 | NUR ---
PT DISCHARGED AT 1615. PT STABLE FOR DISCHARGE PER MD. DISCHARGE PAPER WORK , FOLLOW UP CARE AND INSTRUCTIONS WERE REVIEWED WITH PT AND SIGNIFICANT OTHER. OPPORTUNITY WAS GIVEN FOR PT TO ASK QUESTIONS. PIV WAS REMOVED WITH TIP INTACT. TELE MONITOR REMOVED. BELONGINGS GATHERED WITH PT. PRESCRIPTIONS WERE SENT TO [facility]. PT'S HD SCHEDULE WAS DISCUSSED. PT WAS DISCHARGED TO HOME. PT WAS TRANSPORTED TO PRIVATE VEHICLE BY STAFF.
--- NOTE | 2021-11-08 16:16 | NUR ---
O2 Sat at rest on room air:__98_% If below 89%: Recovery O2 Sat at rest on ___LPM:___%:___% via (mask/nasal cannula, etc..) No further documentation is necessary. If O2 Sat did not drop below 89% on room air,ambulate patient on room air. O2 Sat while ambulating on room air:_98__% Recovery O2 Sat while ambulating on ___LPM:___% No further documentation is necessary. If patient does not drop below 89% while ambulating, he/she does not qualify for home O2.
[2021-11-08] MEDS ORDERED: INSU100V12 SQ (16:19)
== END 2021-11-08 18:30 | disposition home or self-care (01) | DRG 673 ==
LOC: ER 18:42 → ED HOLD 23:11 → MED 3N 10-31 02:53
PROVIDERS: ADMIT Family Medicine; ATTEND Internal Medicine
PROC: 5A09357 Assistance with Respiratory Ventilation, Less than 24 Consecutive Hours, Continuous Positive Airway Pressure (ICD-10-PCS; 2021-10-31)
PROC: 0JH63XZ Insertion of Tunneled Vascular Access Device into Chest Subcutaneous Tissue and Fascia, Percutaneous Approach (ICD-10-PCS; principal; 2021-11-04)
PROC: 02H633Z Insertion of Infusion Device into Right Atrium, Percutaneous Approach (ICD-10-PCS; 2021-11-04)
PROC: B518ZZA Fluoroscopy of Superior Vena Cava, Guidance (ICD-10-PCS; 2021-11-04)
PROC: B548ZZA Ultrasonography of Superior Vena Cava, Guidance (ICD-10-PCS; 2021-11-04)
PROC: 5A1D70Z Performance of Urinary Filtration, Intermittent, Less than 6 Hours Per Day (ICD-10-PCS; 2021-11-04)
PROC: 5A1D70Z Performance of Urinary Filtration, Intermittent, Less than 6 Hours Per Day (ICD-10-PCS; 2021-11-05)
PROC: 5A1D70Z Performance of Urinary Filtration, Intermittent, Less than 6 Hours Per Day (ICD-10-PCS; 2021-11-07)
DX: N17.9 Acute kidney failure, unspecified (principal); J18.9 Pneumonia, unspecified organism; I50.33 Acute on chronic diastolic (congestive) heart failure; J96.21 Acute and chronic respiratory failure with hypoxia; J44.1 Chronic obstructive pulmonary disease with (acute) exacerbation; I13.2 Hypertensive heart and chronic kidney disease with heart failure and with stage 5 chronic kidney disease, or end stage renal disease; J44.0 Chronic obstructive pulmonary disease with (acute) lower respiratory infection; N18.6 End stage renal disease; K21.9 Gastro-esophageal reflux disease without esophagitis; I25.10 Atherosclerotic heart disease of native coronary artery without angina pectoris; E78.00 Pure hypercholesterolemia, unspecified; G89.4 Chronic pain syndrome; E78.5 Hyperlipidemia, unspecified; D63.8 Anemia in other chronic diseases classified elsewhere; E11.22 Type 2 diabetes mellitus with diabetic chronic kidney disease; E11.65 Type 2 diabetes mellitus with hyperglycemia; F03.90 Unspecified dementia, unspecified severity, without behavioral disturbance, psychotic disturbance, mood disturbance, and anxiety; Z20.822 Contact with and (suspected) exposure to COVID-19; M10.9 Gout, unspecified; I27.20 Pulmonary hypertension, unspecified; D72.829 Elevated white blood cell count, unspecified; T38.0X5A Adverse effect of glucocorticoids and synthetic analogues, initial encounter; Y92.238 Other place in hospital as the place of occurrence of the external cause; Z90.5 Acquired absence of kidney; Z99.2 Dependence on renal dialysis; Z80.1 Family history of malignant neoplasm of trachea, bronchus and lung; I25.2 Old myocardial infarction; Z79.891 Long term (current) use of opiate analgesic; Z95.0 Presence of cardiac pacemaker; Z95.1 Presence of aortocoronary bypass graft; Z79.899 Other long term (current) drug therapy; Z79.82 Long term (current) use of aspirin; Z84.89 Family history of other specified conditions
CPT/HCPCS: 36415; 36558; 36600; 71045; 76604; 76770; 76881; 76937; 77001; 80048; 80053; 80061; 81001; 82803; 82948; 83036; 83605; 83735; 83880; 84100; 84145; 84484; 85007; 85008; 85018; 85025; 85027; 85610; 85730; 86704; 86803; 87040; 87081; 87340; 87635; 93005; 93306; 94640; 94660; 94667; 94668; 94760; 97161; 97530; 99285; A9270; C1750; C1769; C1894; G0257; G0378; J0456; J0696; J1644; J1815; J2150; J2270; J2920; J2930; J3010; J3490; J7030; J7070; J7512; Q4081

== ENCOUNTER 2023-01-26 14:22 | Outpatient (CLI) | payer MEDICARE, MEDICAID ==
[~2023-01-26 14:22] MED LIST changes: -AZI25OT PO; +CARV12.545 PO; -CARV3.1289 PO; -DOCU100T28 PO; -FENO48TA10 PO; -FLUT16SP BOTHNARES; -FURO-150 PO; +GLUC1AUT; -HYDR-3972 PO; -LOSA50TA64 PO; +PATI8.4P PO
== END 2023-01-26 23:59 | disposition home or self-care (01) ==
LOC: RAD 14:22
PROVIDERS: ATTEND Internal Medicine Cardiovascular Disease
DX: I08.8 Other rheumatic multiple valve diseases (principal); I25.10 Atherosclerotic heart disease of native coronary artery without angina pectoris
CPT/HCPCS: 93306

== ENCOUNTER 2023-11-13 09:49 | Day surgery (SDC) | payer MEDICARE, MEDICAID ==
[2023-11-12 15:20] LABS: BASOPHILS % (AUTO) 0.3 % (0-1); EOSINOPHILS # (AUTO) 0.1 X10'3 (0-0.9); EOSINOPHILS % (AUTO) 1.5 % (0-6); HEMATOCRIT 38.2 % (42.0-52.0); LYMPHOCYTES # (AUTO) 1.1 X10'3 (1.1-4.8); MEAN CORPUSCULAR HEMOGLOBIN 31.4 PG (27.0-31.0); MEAN CORPUSCULAR HGB CONC 31.3 g/dL (33.0-36.5); MEAN CORPUSCULAR VOLUME 100.1 FL (78-98); MEAN PLATELET VOLUME 10.5 FL (7.4-10.4); MONOCYTES # (AUTO) 0.8 X10'3 (0-0.9); NEUTROPHILS # (AUTO) 5.8 X10'3 (1.8-7.7); NEUTROPHILS % (AUTO) 74.2 % (42-75); PLATELET COUNT 195 X10'3 (140-440); RED BLOOD COUNT 3.81 X10'6 (4.70-6.10); RED CELL DISTRIBUTION WIDTH 17.7 % (11.5-14.5); WHITE BLOOD COUNT 7.8 X10'3 (4.5-11.0)
[2023-11-12 15:28] LABS: ALBUMIN 3.7 G/DL (3.4-5.0); ANION GAP 9 (8-16); BLOOD UREA NITROGEN 26 MG/DL (7-18); BUN/CREATININE RATIO 9.3 (10.0-20.0); CALCIUM 9.4 MG/DL (8.5-10.1); CHLORIDE 97 MMOL/L (99-107); CREATININE 2.81 MG/DL (0.60-1.10); GLUCOSE 199 MG/DL (70-104); POTASSIUM 3.7 MMOL/L (3.5-5.1); SODIUM 134 MMOL/L (135-145); TOTAL CARBON DIOXIDE 28.3 MMOL/L (24-32); eGFR 22 ML/MIN
[2023-11-12 15:32] LABS: APTT 33 SECONDS (22-32); INR 1.1 INR; PROTHROMBIN TIME 11.3 SECONDS (9.0-12.0)
[~2023-11-13] VITALS: Ht 172.7 cm; Wt 69.9 kg
[2023-11-13] VITALS (10 sets, daily range): BP systolic 117–134; BP diastolic 62–68; PULSE 79–80; RESP 12–14; TEMP 98.2; O2SAT 96–100
[2023-11-13] MEDS ORDERED: normal saline 1,000 ML IV SCH (10:10)
[2023-11-13] MEDS ORDERED: diphenhydrAMINE 25mg capsule PO PRN (10:10)
[2023-11-13] MEDS ORDERED: LORazepam 0.5 MG tablet PO PRN ×2 (10:10→11:40)
[2023-11-13] MEDS ORDERED: PRAV40TA3 PO (10:43)
[2023-11-13] MEDS ORDERED: CARV6.2553 PO (10:44)
[2023-11-13] MEDS ORDERED: ZOLP10TA (10:45)
[2023-11-13] MEDS ORDERED: FURO80TA3 PO (10:46)
[2023-11-13] MEDS ORDERED: LORA10TA7 PO (10:47)
[2023-11-13] MEDS ORDERED: BENZ-111 PO (10:47)
[2023-11-13] MEDS ORDERED: [UNRECOGNIZED DRUG - OTHER] PO (10:51)
[2023-11-13] MEDS ORDERED: LIDOcaine 1% 30ml preserv. free vial ONE (11:26)
[2023-11-13] MEDS ORDERED: fentaNYL/PF 50MCG/1 ML 2ML syringe ONE (11:26)
[2023-11-13] MEDS ORDERED: heparin 1,000unit/ml 10ml vial 10 ML ONE (11:27)
[2023-11-13] MEDS ORDERED: midazolam 1 mg/ML 2ml injection ONE (11:27)
[2023-11-13] MEDS ORDERED: nitroGLYCERIN 500mcg/5mL D5W 5 ML IV ONE (11:27)
[2023-11-13] MEDS ORDERED: acetylcysteine 200 MG/ml 4ml vial PO PRN (11:36)
[2023-11-13] MEDS ORDERED: iohexol 350MG/ML 100ml bottle IV ONE (11:37)
[2023-11-13] MEDS ORDERED: sodium bicarbonate 1meq/ml syr 150 ML in dextrose 5%-water 1,000 ML IV ONE (11:40)
[2023-11-13] MEDS ORDERED: iohexol 350 MG/ML 50ML vial IV ONE (13:25)
[2023-11-13] MEDS ORDERED: heparin 25,000 UNIT/250ml bag 250 ML IV ONE (13:38)
[2023-11-13] MEDS ORDERED: heparin 1,000 UNITS/NS 500ml 500 ML ONE (13:41)
[2023-11-13] MEDS ORDERED: clopidogrel 300mg tablet ONE (14:02)
[2023-11-13] MEDS ORDERED: aspirin 81mg tab.chew ONE (14:21)
[2023-11-13] MEDS ORDERED: clopidogrel 300mg tablet PO ONE (15:25)
[2023-11-14] MEDS ORDERED: clopidogrel 75mg tablet PO SCH (08:00)
[2023-11-16 06:15] LABS: ISTAT HGB ART 11.6 g/dl (14.0-17.9); ISTAT Hct ART 34 %PCV (42-52); ISTAT O2 SATURATION ARTERIAL 99 % (95-98); ISTAT SOURCE BLNK
[2023-11-16 06:15] LABS: ISTAT HGB MIX 11.6 g/dl (14.0-17.9); ISTAT Hct MIX 34 %PCV (42-52); ISTAT O2 SATURATION MIX VENOUS 76 % (60-80); ISTAT SOURCE BLNK
== END 2023-11-13 19:20 | disposition home or self-care (01) ==
LOC: SSTAY O 09:49
PROVIDERS: ATTEND Internal Medicine Cardiovascular Disease
DX: I25.10 Atherosclerotic heart disease of native coronary artery without angina pectoris (principal); T82.855A Stenosis of coronary artery stent, initial encounter; I25.82 Chronic total occlusion of coronary artery; I10 Essential (primary) hypertension; E78.5 Hyperlipidemia, unspecified; I49.5 Sick sinus syndrome; Z95.0 Presence of cardiac pacemaker; Z95.1 Presence of aortocoronary bypass graft; Z79.899 Other long term (current) drug therapy; Z79.01 Long term (current) use of anticoagulants; Z90.5 Acquired absence of kidney; Z85.528 Personal history of other malignant neoplasm of kidney; Y84.0 Cardiac catheterization as the cause of abnormal reaction of the patient, or of later complication, without mention of misadventure at the time of the procedure; Y92.89 Other specified places as the place of occurrence of the external cause
CPT/HCPCS: 36415; 76937; 80048; 82803; 82948; 85014; 85025; 85347; 85610; 85730; 93005; 93461; 99152; 99153; C1874; C9600; J1644; J2250; J3010; J3490; J7030; Q0163; Q9967; A6258; A6449; C1725; C1751; C1760; C1769

== ENCOUNTER 2024-05-27 10:36 | Emergency (ER) | payer MEDICARE, MEDICAID ==
[~2024-05-27] VITALS: Ht 172.7 cm; Wt 64.6 kg
[~2024-05-27 10:36] MED LIST changes: -ALBU18HF2 PO; -AMLO5TAB16 PO; +BENZ-111 PO; -CARV12.545 PO; +CARV6.2553 PO; -FERR-39 PO; +FURO80TA3 PO; -GLUC1AUT; +LORA10TA7 PO; -PRAV10TA38 PO; +PRAV40TA3 PO; +ZOLP10TA; +[UNRECOGNIZED DRUG - OTHER] PO
[2024-05-27 11:27] LABS: BASOPHILS % (AUTO) 0.3 % (0-1); EOSINOPHILS # (AUTO) 0.1 X10'3 (0-0.9); EOSINOPHILS % (AUTO) 1.2 % (0-6); HEMATOCRIT 40.1 % (42.0-52.0); HEMOGLOBIN 12.9 g/dl (14.0-17.9); LYMPHOCYTES # (AUTO) 0.7 X10'3 (1.1-4.8); LYMPHOCYTES % (AUTO) 8.2 % (21-51); MEAN CORPUSCULAR HEMOGLOBIN 28.7 PG (27.0-31.0); MEAN CORPUSCULAR HGB CONC 32.1 g/dL (33.0-36.5); MEAN CORPUSCULAR VOLUME 89.5 FL (78-98); MEAN PLATELET VOLUME 11.2 FL (7.4-10.4); MONOCYTES # (AUTO) 1.1 X10'3 (0-0.9); MONOCYTES % (AUTO) 12.9 % (2-12); NEUTROPHILS # (AUTO) 6.8 X10'3 (1.8-7.7); NEUTROPHILS % (AUTO) 77.4 % (42-75); PLATELET COUNT 114 X10'3 (140-440); RED BLOOD COUNT 4.48 X10'6 (4.70-6.10); RED CELL DISTRIBUTION WIDTH 19.1 % (11.5-14.5); WHITE BLOOD COUNT 8.7 X10'3 (4.5-11.0)
[2024-05-27 11:32] LABS: ALBUMIN 3.8 G/DL (3.4-5.0); ANION GAP 11 (8-16); BLOOD UREA NITROGEN 36 MG/DL (7-18); BUN/CREATININE RATIO 11.3 (10.0-20.0); CALCIUM 9.3 MG/DL (8.5-10.1); CHLORIDE 95 MMOL/L (99-107); GLUCOSE 354 MG/DL (70-104); POTASSIUM 3.6 MMOL/L (3.5-5.1); PRO BRAIN NATRIURETIC PEPTIDE 23136 PG/ML (0-450); SODIUM 135 MMOL/L (135-145); TOTAL CARBON DIOXIDE 29.4 MMOL/L (24-32); eCRCL 17 ML/MIN; eGFR 19 ML/MIN
[2024-05-27] MEDS ORDERED: APIX2.5T PO (12:12)
[2024-05-27] MEDS ORDERED: FURO-150 PO (12:14)
[2024-05-27] MEDS ORDERED: DOXY-224 PO (12:19)
[2024-05-27] MEDS ORDERED: CLOP75TA34 PO (12:19)
[2024-05-27] MEDS ORDERED: GABA-530 PO (12:19)
[2024-05-27] MEDS ORDERED: INSU100V12 SQ (12:19)
[2024-05-27] MEDS ORDERED: PRED10TA PO (12:19)
[2024-05-27] MEDS ORDERED: DOCU-391 PO (12:19)
[2024-05-27] MEDS ORDERED: UMEC1DIS INH (12:19)
[2024-05-27] MEDS ORDERED: IPRA4AER (12:19)
[2024-05-27] MEDS ORDERED: MIDO2.5T14 PO (12:20)
[2024-05-27] MEDS ORDERED: COMPLEX PO (12:21)
[2024-05-27 12:48] LABS: ANISOCYTOSIS 2+; ELLIPTOCYTES FEW; LARGE PLATELETS FEW; PLATELET ESTIMATE DECREASED; STOMATOCYTES FEW
[2024-05-27 13:17] VITALS: TEMP 98
[2024-05-27 13:45] LABS: C-REACTIVE PROTEIN 7.49 MG/DL (0.0-0.5)
[2024-05-27] MEDS ORDERED: CEFU250T95 PO (14:20)
[2024-05-27] MEDS ORDERED: CHLO4TAB36 PO (14:20)
[2024-05-27] MEDS ORDERED: CEFU500T66 PO (14:26)
[2024-05-27 15:11] VITALS: BP 149/80; PULSE 80; RESP 18; O2SAT 99
== END 2024-05-27 15:13 | disposition home or self-care (01) ==
LOC: ER 10:37
DX: R09.82 Postnasal drip (principal); R05.3 Chronic cough; L89.90 Pressure ulcer of unspecified site, unspecified stage; I12.9 Hypertensive chronic kidney disease with stage 1 through stage 4 chronic kidney disease, or unspecified chronic kidney disease; E11.22 Type 2 diabetes mellitus with diabetic chronic kidney disease; N18.9 Chronic kidney disease, unspecified; E78.00 Pure hypercholesterolemia, unspecified; K21.9 Gastro-esophageal reflux disease without esophagitis; Z79.899 Other long term (current) drug therapy; Z79.82 Long term (current) use of aspirin; Z79.4 Long term (current) use of insulin
CPT/HCPCS: 36415; 71045; 80048; 83605; 83880; 84484; 85008; 85025; 85651; 86140; 87040; 93005; 99285; A6446